=== PATIENT | male | born 1955 | race Caucasian/White ===

== ENCOUNTER 2018-03-28 20:45 | Emergency (ER) | payer MEDICARE, OTHER ==
[2018-03-28 21:04] VITALS: RESP 18
[2018-03-28 21:35] LABS: Basophils % (A) 0 %; Eosinophils # (A) 0.1 k/uL (0-0.7); Eosinophils % (A) 2 %; HCT 37.1 % (39.0-53.0); Lymphocytes # (A) 1.2 k/uL (1.0-4.8); Lymphocytes % (A) 21 %; MCH 29.1 pg (25.0-35.0); MCHC 32.3 g/dL (31.0-37.0); Mean Platelet Volume 7.4; Monocytes # (A) 0.6 k/uL (0-1.0); Monocytes % (A) 12 %; Neutrophils # (A) 3.5 k/uL (1.3-7.7); Neutrophils % (A) 63 %; Platelet Count 207 k/uL (150-450); RBC 4.12 m/uL (4.30-5.90); RDW 15.8 % (11.5-15.5); WBC 5.6 k/uL (3.8-10.6)
[2018-03-28 21:54] LABS: ALT 21 U/L (21-72); AST 20 U/L (17-59); Alcohol <10 mg/dL; Alkaline Phosphatase 60 U/L (38-126); Anion Gap 13 mmol/L; Blood Urea Nitrogen 24 mg/dL (9-20); Calcium 9.4 mg/dL (8.4-10.2); Carbon Dioxide 28 mmol/L (22-30); Chloride 103 mmol/L (98-107); Glucose 104 mg/dL (74-99); Potassium 4.5 mmol/L (3.5-5.1); Sodium 144 mmol/L (137-145); Total Bilirubin 0.4 mg/dL (0.2-1.3)
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
[2018-03-28 23:24] LABS: Appearance,Urine Clear (Clear); Bilirubin,Urine Negative (Negative); Blood,Urine Negative (Negative); Color,Urine Yellow; Glucose,Urine (UA) Negative (Negative); Ketones,Urine Negative (Negative); Leukocyte Esterase,Urine Small (Negative); Mucus,Urine Rare /hpf; Nitrite,Urine Negative (Negative); PH, Urine 5.5 (5.0-8.0); Protein,Urine Trace (Negative); RBC,Urine 5 /hpf (0-5); Specific Gravity,Urine 1.022 (1.001-1.035); Squamous Epithelial Cell,Urine <1 /hpf (0-4); Urobilinogen,Urine <2.0 mg/dL (<2.0); WBC,Urine 4 /hpf (0-5)
[2018-03-28 23:41] LABS: Amphetamine Screen,Urine Not Detected (NotDetected); Barbiturate Screen,Urine Not Detected (NotDetected); Benzodiazepines Screen,Urine Detected (NotDetected); Cocaine Screen,Urine Not Detected (NotDetected); Methadone Screen, Urine Not Detected (NotDetected); Opiate Screen,Urine Not Detected (NotDetected); Oxycodone Screen, Urine Not Detected (NotDetected); Phencyclidine Screen,Urine Not Detected (NotDetected); Tricyclic Antidepressant,Urine Detected (NotDetected); Urn Cannabinoid Scrn Not Detected (NotDetected)
[2018-03-29 01:35] VITALS: BP 170/83; PULSE 75; TEMP 97.8
== END 2018-03-29 01:34 | disposition home or self-care (01) ==
LOC: EC 20:45
DX: F20.9 Schizophrenia, unspecified (principal); F31.9 Bipolar disorder, unspecified; F79 Unspecified intellectual disabilities; Z79.01 Long term (current) use of anticoagulants; Z79.82 Long term (current) use of aspirin; Z79.51 Long term (current) use of inhaled steroids; Z79.899 Other long term (current) drug therapy; Z88.8 Allergy status to other drugs, medicaments and biological substances
CPT/HCPCS: 36415; 51701; 80053; 80306; 80320; 81001; 82075; 85025; 99284

== ENCOUNTER 2018-03-29 14:55 | Emergency (ER) | payer MEDICARE, OTHER ==
[2018-03-29] MEDS ORDERED: LORazepam 2 MG/ML INJ IV STA (15:27)
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
[2018-03-29 15:58] LABS: Basophils % (A) 0 %; Eosinophils # (A) 0.1 k/uL (0-0.7); Eosinophils % (A) 1 %; HCT 38.8 % (39.0-53.0); HGB 12.7 gm/dL (13.0-17.5); Lymphocytes % (A) 15 %; MCH 29.7 pg (25.0-35.0); MCHC 32.6 g/dL (31.0-37.0); MCV 91.1 fL (80.0-100.0); Mean Platelet Volume 6.8; Monocytes # (A) 0.7 k/uL (0-1.0); Monocytes % (A) 10 %; Neutrophils # (A) 4.5 k/uL (1.3-7.7); Neutrophils % (A) 70 %; Platelet Count 201 k/uL (150-450); RBC 4.26 m/uL (4.30-5.90); RDW 15.9 % (11.5-15.5); WBC 6.5 k/uL (3.8-10.6)
[2018-03-29 16:11] LABS: ALT 23 U/L (21-72); AST 22 U/L (17-59); Albumin 4.2 g/dL (3.5-5.0); Alcohol <10 mg/dL; Alkaline Phosphatase 75 U/L (38-126); Anion Gap 16 mmol/L; Blood Urea Nitrogen 23 mg/dL (9-20); Calcium 9.8 mg/dL (8.4-10.2); Carbon Dioxide 28 mmol/L (22-30); Chloride 103 mmol/L (98-107); Glucose 100 mg/dL (74-99); Potassium 5.3 mmol/L (3.5-5.1); Sodium 147 mmol/L (137-145); Total Bilirubin 0.7 mg/dL (0.2-1.3); Total Protein 7.5 g/dL (6.3-8.2)
[2018-03-29 16:14] LABS: INR 1.2 (<1.2); Partial Thromboplastin Time 32.5 sec (22.0-30.0); Prothrombin Time 11.1 sec (9.0-12.0)
[2018-03-29 16:20] LABS: Creatine Kinase 254 U/L (55-170)
[2018-03-29 16:33] LABS: Troponin I <0.012 ng/mL (0.000-0.034)
--- NOTE | 2018-03-29 16:38 | CT ---
EXAMINATION TYPE: CT brain wo con DATE OF EXAM: 03/29/2018 COMPARISON: NONE HISTORY: ALTERED MENTAL STATUS CT DLP: 2386 mGycm Automated exposure control for dose reduction was used. FINDINGS: The exam is limited as the patient is unable to follow commands. The patient would not breast has had in the address and therefore artifact is seen within the left hemisphere. No evidence of acute intra cranial hemorrhage is seen. No midline shift or significant mass effect. Slight ventricular prominenc e and sulcal prominence are most compatible with minimal age-related atrophy. Calvarium is grossly in tact. Paranasal sinuses and mastoid air cells are well aerated. There is partial visualization of upp er cervical spine postsurgical change. No suspicious extra axial fluid collection is seen. IMPRESSION: LIMITED EXAM THE PATIENT COULD NOT FOLLOW INSTRUCTIONS. NO GROSS EVIDENCE OF INTRACRANIAL HEMORRHA GE, MIDLINE SHIFT OR MASS EFFECT.
--- NOTE | 2018-03-29 16:38 | XR ---
EXAMINATION TYPE: XR chest 2V DATE OF EXAM: 03/29/2018 COMPARISON: NONE HISTORY: Confusion. Altered mental status. TECHNIQUE: Frontal and lateral views of the chest are obtained. FINDINGS: There is diffuse osseous demineralization, atypical given the patient's age. There is an e xaggerated thoracic kyphosis and mild multilevel degenerative change of the thoracic spine. No focal consolidation, pleural effusion or pneumothorax. Cardiomediastinal silhouette is upper limits of norm al. Partial visualization of cervical fusion device is seen. IMPRESSION: No acute cardiopulmonary process.
[2018-03-29] MEDS ORDERED: SODIUM CHLORIDE 0.9% 500 ML IV ONE (17:18)
[2018-03-29 17:35] LABS: Appearance,Urine Clear (Clear); Bilirubin,Urine Negative (Negative); Blood,Urine Negative (Negative); Color,Urine Yellow; Glucose,Urine (UA) Negative (Negative); Ketones,Urine Trace (Negative); Leukocyte Esterase,Urine Negative (Negative); Nitrite,Urine Negative (Negative); PH, Urine 6.5 (5.0-8.0); Protein,Urine Negative (Negative); Specific Gravity,Urine 1.018 (1.001-1.035); Urobilinogen,Urine <2.0 mg/dL (<2.0)
[2018-03-29 17:47] LABS: Amphetamine Screen,Urine Not Detected (NotDetected); Barbiturate Screen,Urine Not Detected (NotDetected); Benzodiazepines Screen,Urine Detected (NotDetected); Cocaine Screen,Urine Not Detected (NotDetected); Methadone Screen, Urine Not Detected (NotDetected); Opiate Screen,Urine Not Detected (NotDetected); Oxycodone Screen, Urine Not Detected (NotDetected); Phencyclidine Screen,Urine Not Detected (NotDetected); Tricyclic Antidepressant,Urine Not Detected (NotDetected); Urn Cannabinoid Scrn Not Detected (NotDetected)
[2018-03-29 19:49] VITALS: RESP 19
[2018-03-29 23:13] VITALS: BP 134/80; PULSE 75; TEMP 97
== END 2018-03-29 23:55 | disposition other institution (70) ==
LOC: EC 14:55
DX: F20.9 Schizophrenia, unspecified (principal); F29 Unspecified psychosis not due to a substance or known physiological condition; F31.9 Bipolar disorder, unspecified; K21.9 Gastro-esophageal reflux disease without esophagitis; I10 Essential (primary) hypertension; G40.909 Epilepsy, unspecified, not intractable, without status epilepticus; Z86.711 Personal history of pulmonary embolism; Z79.01 Long term (current) use of anticoagulants; Z79.82 Long term (current) use of aspirin; Z79.51 Long term (current) use of inhaled steroids; Z79.899 Other long term (current) drug therapy; Z88.8 Allergy status to other drugs, medicaments and biological substances
CPT/HCPCS: 82075; 36415; 93005; 80053; 82550; 82553; 84484; 85025; 85610; 85730; 81003; 80306; 80320; 71046; 70450; 99285; 96374; 96361 ×6; J2060

== ENCOUNTER 2018-04-01 14:17 | Emergency (ER) | payer MEDICARE, OTHER ==
--- NOTE | 2018-04-01 15:00 | ED ---
General Adult HPI - General Source: RN notes reviewed <Sheldon Gillis - Last Filed: 04/01/18 16:37> <Saud Tavarez - Last Filed: 04/01/18 23:15> - General Stated complaint: EPS eval Time Seen by Provider: 04/01/18 14:20 - History of Present Illness Initial comments: This is a 62-year-old male who has mental disability and is sent in because he is having more more violent behavior. There is no further history given there is no family with the patient there is no caregiver with the patient and the patient cannot give any further history. He has no complaints of any pain. Patient denies any problems. (Sheldon Gillis) - Related Data Home Medications Medication Instructions Recorded Confirmed Acetaminophen [Tylenol] 650 mg PO Q6HR PRN 03/28/18 04/01/18 Apixaban [Eliquis] 5 mg PO BID 03/28/18 04/01/18 Aspirin EC [Ecotrin Low Dose] 81 mg PO DAILY 03/28/18 04/01/18 Atorvastatin Calcium [Lipitor] 10 mg PO HS 03/28/18 04/01/18 Divalproex Sodium [Divalproex 500 mg PO BID 03/28/18 04/01/18 Sodium ER] Docusate [Colace] 100 mg PO DAILY 03/28/18 04/01/18 Donepezil [Aricept] 10 mg PO DAILY 03/28/18 04/01/18 Fluticasone/Vilanterol [Breo 1 puff INHALATION RT-DAILY 03/28/18 04/01/18 Ellipta 100-25 Mcg Inhaler] Lacosamide [Vimpat] 100 mg PO BID 03/28/18 04/01/18 Memantine [Namenda] 10 mg PO BID 03/28/18 04/01/18 Pantoprazole Sodium [Protonix] 40 mg PO DAILY 03/28/18 04/01/18 QUEtiapine FUMARATE [SEROquel] 300 mg PO HS 03/28/18 04/01/18 Tiotropium [place] [Spiriva] 1 cap INHALATION RT-DAILY 03/28/18 04/01/18 clonazePAM [KlonoPIN] 0.5 mg PO QAM@0900 05/31/18 06/04/18 clonazePAM [KlonoPIN] 1.5 mg PO HS 03/28/18 04/01/18 levETIRAcetam [Keppra] 1,000 mg PO BID 03/28/18 04/01/18 OLANZapine [ZyPREXA Zydis] 5 mg PO Q12H PRN 04/01/18 04/01/18 Allergies Allergy/AdvReac Type Severity Reaction Status Date / Time benztropine Allergy Unknown Verified 04/01/18 15:14 Review of Systems ROS Other: All systems not noted in ROS Statement are negative. <Sheldon Gillis - Last Filed: 04/01/18 16:37> ROS Other: All systems not noted in ROS Statement are negative. <Saud Tavarez - Last Filed: 04/01/18 23:15> ROS Statement: Those systems with pertinent positive or pertinent negative responses have been documented in the HPI. Past Medical History Past Medical History: GERD/Reflux, Hypertension, Pneumonia, Pulmonary Embolus ( PE), Seizure Disorder Additional Past Medical History / Comment(s): respirtory failure, sepsis, thrombocytopenia, bladder disfunction History of Any Multi-Drug Resistant Organisms: Unobtainable Past Surgical History: Unable to Obtain Additional Past Surgical History / Comment(s): unable to obtain from pt Past Psychological History: Bipolar, Schizoaffective Disorder, Schizophrenia Smoking Status: Unknown if ever smoked Past Alcohol Use History: Unable to Obtain Past Drug Use History: Unable to Obtain <Sheldon Gillis - Last Filed: 04/01/18 16:37> General Exam <Sheldon Gillis - Last Filed: 04/01/18 16:37> <Saud Tavarez - Last Filed: 04/01/18 23:15> - General Exam Comments Initial Comments: GENERAL: Patient is well-developed and well-nourished. Patient is nontoxic and well- hydrated and is in no acute distress. ENT: Neck is soft and supple. No significant lymphadenopathy is noted. Oropharynx is clear. Moist mucous membranes. Neck has full range of motion without eliciting any pain. EYES: The sclera were anicteric and conjunctiva were pink and moist. Extraocular movements were intact and pupils were equal round and reactive to light. Eyelids were unremarkable. PULMONARY: Unlabored respirations. Good breath sounds bilaterally. No audible rales rhonchi or wheezing was noted. CARDIOVASCULAR: There is a regular rate and rhythm without any murmurs gallops or rubs. ABDOMEN: Soft and nontender with normal bowel sounds. SKIN: Skin is clear with no lesions or rashes and otherwise unremarkable. NEUROLOGIC: Patient is alert and oriented times one. Cranial nerves II through XII are grossly intact. Motor and sensory are also intact. Symmetrical smile. MUSCULOSKELETAL: Normal extremities with adequate strength and full range of motion. No lower extremity swelling or edema. No calf tenderness. LYMPHATICS: No significant lymphadenopathy is noted (Sheldon Gillis) Vital Signs 04/01/18 04/01/18 04/01/18 15:08 15:24 21:58 Temperature 98.4 F 98.0 F Pulse Rate 97 94 Respiratory 18 20 16 Rate Blood Pressure 131/90 125/77 O2 Sat by Pulse 95 96 Oximetry Medical Decision Making <Sheldon Gillis - Last Filed: 04/01/18 16:37> - Lab Data Result diagrams: 04/01/18 16:42 04/01/18 16:42 <Saud Tavarez - Last Filed: 04/01/18 23:15> - Medical Decision Making Dr. Lakhani will be taking over the care of this patient at 5 PM (Sheldon Gillis) The patient was seen and examined. All diagnostics were reviewed. It is felt as though he is medically cleared for further psychiatric evaluation. The case is discussed with the psychiatric nurse and they do arrange transfer to another psychiatric facility for further geriatric psychiatric treatment. (Saud Tavarez) - Lab Data Lab Results 04/01/18 04/01/18 04/01/18 Range/Units 16:42 16:42 16:42 WBC 9.2 (3.8-10.6) k/uL RBC 3.82 L (4.30-5.90) m/uL Hgb 11.2 L (13.0-17.5) gm/dL Hct 34.8 L (39.0-53.0) % MCV 91.0 (80.0-100.0) fL MCH 29.4 (25.0-35.0) pg MCHC 32.3 (31.0-37.0) g/dL RDW 15.8 H (11.5-15.5) % Plt Count 162 (150-450) k/uL Neutrophils % 75 % Lymphocytes % 14 % Monocytes % 8 % Eosinophils % 2 % Basophils % 0 % Neutrophils # 6.9 (1.3-7.7) k/uL Lymphocytes # 1.3 (1.0-4.8) k/uL Monocytes # 0.8 (0-1.0) k/uL Eosinophils # 0.1 (0-0.7) k/uL Basophils # 0.0 (0-0.2) k/uL Hypochromasia Slight Sodium 141 (137-145) mmol/L Potassium 4.7 (3.5-5.1) mmol/L Chloride 99 (98-107) mmol/L Carbon Dioxide 31 H (22-30) mmol/L Anion Gap 11 mmol/L BUN 12 (9-20) mg/dL Creatinine 0.85 (0.66-1.25) mg/dL Est GFR (CKD-EPI)AfAm >90 (>60 ml/min/1.73 sqM) Est GFR (CKD-EPI)NonAf >90 (>60 ml/min/1.73 sqM) Glucose 107 H (74-99) mg/dL Calcium 9.0 (8.4-10.2) mg/dL Total Bilirubin 0.7 (0.2-1.3) mg/dL AST 22 (17-59) U/L ALT 21 (21-72) U/L Alkaline Phosphatase 63 (38-126) U/L Total Protein 6.9 (6.3-8.2) g/dL Albumin 4.0 (3.5-5.0) g/dL Urine Opiates Screen Not Detected (NotDetected) Ur Oxycodone Screen Not Detected (NotDetected) Urine Methadone Screen Not Detected (NotDetected) Ur Propoxyphene Screen Not Detected (NotDetected) Ur Barbiturates Screen Not Detected (NotDetected) U Tricyclic Antidepress Detected H (NotDetected) Ur Phencyclidine Scrn Not Detected (NotDetected) Ur Amphetamines Screen Not Detected (NotDetected) U Methamphetamines Scrn Not Detected (NotDetected) U Benzodiazepines Scrn Not Detected (NotDetected) Urine Cocaine Screen Not Detected (NotDetected) U Marijuana (THC) Screen Not Detected (NotDetected) Disposition <Sheldon Gillis - Last Filed: 04/01/18 16:37> Is patient prescribed a controlled substance at d/c from ED?: No Time of Disposition: 23:15 - Out of Hospital Transfer - Req. Specs Out of Hospital Transfer - Requested Specifics: Psychiatric Non-ICU <Saud Tavarez - Last Filed: 04/01/18 23:15> Clinical Impression: Aggressive behavior Disposition: TRANSFER TO PSYCH HOSP/UNIT Condition: Good
[2018-04-01 16:49] LABS: Basophils % (A) 0 %; Eosinophils # (A) 0.1 k/uL (0-0.7); Eosinophils % (A) 2 %; HCT 34.8 % (39.0-53.0); HGB 11.2 gm/dL (13.0-17.5); Hypochromasia Slight; Lymphocytes # (A) 1.3 k/uL (1.0-4.8); Lymphocytes % (A) 14 %; MCH 29.4 pg (25.0-35.0); MCHC 32.3 g/dL (31.0-37.0); Mean Platelet Volume 6.5; Monocytes # (A) 0.8 k/uL (0-1.0); Monocytes % (A) 8 %; Neutrophils # (A) 6.9 k/uL (1.3-7.7); Neutrophils % (A) 75 %; Platelet Count 162 k/uL (150-450); RBC 3.82 m/uL (4.30-5.90); RDW 15.8 % (11.5-15.5); WBC 9.2 k/uL (3.8-10.6)
[2018-04-01 16:59] LABS: ALT 21 U/L (21-72); AST 22 U/L (17-59); Alkaline Phosphatase 63 U/L (38-126); Amphetamine Screen,Urine Not Detected (NotDetected); Anion Gap 11 mmol/L; Barbiturate Screen,Urine Not Detected (NotDetected); Benzodiazepines Screen,Urine Not Detected (NotDetected); Blood Urea Nitrogen 12 mg/dL (9-20); Carbon Dioxide 31 mmol/L (22-30); Chloride 99 mmol/L (98-107); Cocaine Screen,Urine Not Detected (NotDetected); Glucose 107 mg/dL (74-99); Methadone Screen, Urine Not Detected (NotDetected); Opiate Screen,Urine Not Detected (NotDetected); Oxycodone Screen, Urine Not Detected (NotDetected); Phencyclidine Screen,Urine Not Detected (NotDetected); Potassium 4.7 mmol/L (3.5-5.1); Sodium 141 mmol/L (137-145); Total Bilirubin 0.7 mg/dL (0.2-1.3); Total Protein 6.9 g/dL (6.3-8.2); Tricyclic Antidepressant,Urine Detected (NotDetected); Urn Cannabinoid Scrn Not Detected (NotDetected)
[2018-04-02 03:15] VITALS: RESP 18
[2018-04-02 05:25] LABS: Appearance,Urine Cloudy (Clear); Bacteria,Urine Rare /hpf; Bilirubin,Urine Negative (Negative); Blood,Urine Moderate (Negative); Color,Urine Yellow; Glucose,Urine (UA) Negative (Negative); Ketones,Urine Negative (Negative); Leukocyte Esterase,Urine Large (Negative); Mucus,Urine Rare /hpf; Nitrite,Urine Negative (Negative); PH, Urine 7.5 (5.0-8.0); Protein,Urine 1+ (Negative); RBC,Urine 88 /hpf (0-5); Specific Gravity,Urine 1.012 (1.001-1.035); Squamous Epithelial Cell,Urine 1 /hpf (0-4); Urobilinogen,Urine <2.0 mg/dL (<2.0); WBC,Urine 180 /hpf (0-5)
[2018-04-02] MEDS ORDERED: LEVOFLOXACIN 750 MG TAB PO STA (05:42)
[2018-04-02] MEDS ORDERED: levETIRAcetam 500 MG TAB PO STA (06:05)
[2018-04-02] MEDS ORDERED: DOCUSATE 100 MG CAP PO ONE (07:00)
[2018-04-02] MEDS ORDERED: MEMANTINE 10 MG TAB PO ONE (07:00)
[2018-04-02] MEDS ORDERED: ASPIRIN 81 MG PO ONE (07:00)
[2018-04-02] MEDS ORDERED: LACOSAMIDE 50 MG TABLET PO ONE (07:00)
[2018-04-02] MEDS ORDERED: PANTOPRAZOLE 40 MG TABLET PO ONE (07:00)
[2018-04-02] MEDS ORDERED: APIXABAN 5 MG TAB PO ONE (07:00)
[2018-04-02] MEDS ORDERED: IPRATROPIUM 0.5 MG/2.5 ML NEBU INHALATION ONE (07:00)
[2018-04-02] MEDS: DIVALPROEX ER 500 MG TAB.ER.24H PO ONE ×2 (07:12→07:14)
[2018-04-02] MEDS ORDERED: OLANZapine 5 MG TAB PO SCH (09:00)
[2018-04-02 14:53] VITALS: BP 145/85; PULSE 82; TEMP 97.1
== END 2018-04-02 14:54 ==
LOC: EC 14:17
DX: F91.8 Other conduct disorders (principal); K21.9 Gastro-esophageal reflux disease without esophagitis; I10 Essential (primary) hypertension; G40.909 Epilepsy, unspecified, not intractable, without status epilepticus; Z86.711 Personal history of pulmonary embolism; F31.9 Bipolar disorder, unspecified; F20.9 Schizophrenia, unspecified; Z79.01 Long term (current) use of anticoagulants; Z79.82 Long term (current) use of aspirin; Z79.899 Other long term (current) drug therapy; Z88.8 Allergy status to other drugs, medicaments and biological substances; Z53.8 Procedure and treatment not carried out for other reasons
CPT/HCPCS: 36415; 80053; 80306; 81001; 82075; 85025; 99285

== ENCOUNTER 2018-04-02 19:09 | Inpatient (IN) | payer MEDICARE, MEDICAID ==
--- NOTE | 2018-04-02 19:43 | ED ---
General Adult HPI - General Chief complaint: Psychiatric Symptoms Stated complaint: Mental Health Time Seen by Provider: 04/02/18 19:19 Source: EMS, RN notes reviewed, old records reviewed Mode of arrival: EMS Limitations: no limitations - History of Present Illness Initial comments: This is a 62-year-old male the ER for evaluation. Patient's brought in his return evaluation for inpatient psychiatric admission treatment. Patient is found to staff, cooperative, patient's poor strain currently. Patient's brought in by EMS as he was refusing transfer facility secondary to inpatient psychiatric treatment. - Related Data Home Medications Medication Instructions Recorded Confirmed Acetaminophen [Tylenol] 650 mg PO Q6HR PRN 03/28/18 04/02/18 Apixaban [Eliquis] 5 mg PO BID 03/28/18 04/02/18 Aspirin EC [Ecotrin Low Dose] 81 mg PO DAILY 03/28/18 04/02/18 Atorvastatin Calcium [Lipitor] 10 mg PO HS 03/28/18 04/02/18 Divalproex Sodium [Divalproex 500 mg PO BID 03/28/18 04/02/18 Sodium ER] Docusate [Colace] 100 mg PO DAILY 03/28/18 04/02/18 Donepezil [Aricept] 10 mg PO DAILY 03/28/18 04/02/18 Fluticasone/Vilanterol [Breo 1 puff INHALATION RT-DAILY 03/28/18 04/02/18 Ellipta 100-25 Mcg Inhaler] Lacosamide [Vimpat] 100 mg PO BID 03/28/18 04/02/18 Memantine [Namenda] 10 mg PO BID 03/28/18 04/02/18 Pantoprazole Sodium [Protonix] 40 mg PO DAILY 03/28/18 04/02/18 QUEtiapine FUMARATE [SEROquel] 300 mg PO HS 03/28/18 04/02/18 Tiotropium [place] [Spiriva] 1 cap INHALATION RT-DAILY 03/28/18 04/02/18 clonazePAM [KlonoPIN] 0.5 mg PO QAM@0900 03/28/18 04/02/18 clonazePAM [KlonoPIN] 1.5 mg PO HS 03/28/18 04/02/18 levETIRAcetam [Keppra] 1,000 mg PO BID 03/28/18 04/02/18 OLANZapine [ZyPREXA Zydis] 5 mg PO Q12H PRN 04/01/18 04/02/18 Allergies Allergy/AdvReac Type Severity Reaction Status Date / Time benztropine Allergy Unknown Verified 04/02/18 19:18 Review of Systems ROS Statement: Those systems with pertinent positive or pertinent negative responses have been documented in the HPI. ROS Other: All systems not noted in ROS Statement are negative. Past Medical History Past Medical History: GERD/Reflux, Hypertension, Pneumonia, Pulmonary Embolus ( PE), Seizure Disorder Additional Past Medical History / Comment(s): respirtory failure, sepsis, thrombocytopenia, bladder disfunction History of Any Multi-Drug Resistant Organisms: Unobtainable Past Surgical History: Unable to Obtain Additional Past Surgical History / Comment(s): unable to obtain from pt Past Psychological History: Bipolar, Schizoaffective Disorder, Schizophrenia Smoking Status: Unknown if ever smoked Past Alcohol Use History: Unable to Obtain Past Drug Use History: Unable to Obtain General Exam Limitations: no limitations General appearance: alert, in no apparent distress Head exam: Present: atraumatic, normocephalic, normal inspection Eye exam: Present: normal appearance, PERRL, EOMI. Absent: scleral icterus, conjunctival injection, periorbital swelling ENT exam: Present: normal exam, mucous membranes moist Neck exam: Present: normal inspection. Absent: tenderness, meningismus, lymphadenopathy Respiratory exam: Present: normal lung sounds bilaterally. Absent: respiratory distress, wheezes, rales, rhonchi, stridor Cardiovascular Exam: Present: regular rate, normal rhythm, normal heart sounds. Absent: systolic murmur, diastolic murmur, rubs, gallop, clicks GI/Abdominal exam: Present: soft, normal bowel sounds. Absent: distended, tenderness, guarding, rebound, rigid Extremities exam: Present: normal inspection, full ROM, normal capillary refill. Absent: tenderness, pedal edema, joint swelling, calf tenderness Back exam: Present: normal inspection Neurological exam: Present: alert, oriented X3, CN II-XII intact Psychiatric exam: Present: normal affect, normal mood Skin exam: Present: warm, dry, intact, normal color. Absent: rash Course Vital Signs 04/02/18 19:12 Temperature 98.5 F Pulse Rate 87 Respiratory 16 Rate Blood Pressure 170/88 O2 Sat by Pulse 93 L Oximetry - Reevaluation(s) Reevaluation #1: 04/02/18 19:43 Prior ER hospitalization and transfer paperwork are reviewed Medical Decision Making - Medical Decision Making 62 male seen evaluated with psychiatry, inappropriate for admission for psychiatric evaluation and treatment Disposition Clinical Impression: Schizophrenia, Aggressive behavior, Psychosis Disposition: TRANSFER TO PSYCH HOSP/UNIT Condition: Fair Is patient prescribed a controlled substance at d/c from ED?: No Referrals: Nonstaff,Physician [Primary Care Provider] - 1-2 days
[2018-04-02] MEDS ORDERED: MAGNESIUM HYDROXIDE 2,400 MG/10 ML CUP PO PRN (20:42)
[2018-04-02] MEDS ORDERED: MAG HYDROX/AL HYDROX/SIMETH 30 ML CUP PO PRN (20:42)
[2018-04-02] MEDS: MEMANTINE 10 MG TAB PO SCH (21:54)
[2018-04-02] MEDS: LACOSAMIDE 50 MG TABLET PO SCH (22:00)
[2018-04-02] MEDS: QUEtiapine 100 MG TAB PO SCH (22:00)
[2018-04-02] MEDS: clonazePAM 0.5 MG TAB PO SCH (22:00)
[2018-04-02] MEDS: DIVALPROEX ER 500 MG TAB.ER.24H PO SCH (22:00)
[2018-04-02] MEDS: levETIRAcetam 500 MG TAB PO SCH (22:00)
[2018-04-02] MEDS: ATORVASTATIN 10 MG TAB PO SCH (22:01)
[2018-04-02] MEDS: APIXABAN 5 MG TAB PO SCH (22:04)
--- NOTE | 2018-04-02 22:51 | CONS ---
CONSULTATION DATE OF CONSULTATION: 04/02/2018 REASON FOR CONSULTATION: Medical management requested by Dr. Olson. CONSULTATION: This is a 62-year-old patient who was brought here from the [facility] for some erratic behavior. Patient himself does not talk much. Speech is oftentimes slow, but he currently got a sleeping pill and is not giving much information. Patient has a sitter in the room. Patient apparently walks with a limp with the right foot being affected. Patient was petitioned. Patient's chronic stable medical conditions listed include GERD, hypertension, seizure disorder, thyroid dysfunction. REVIEW OF SYSTEMS: Cannot be obtained, as patient is not currently talking much. PAST MEDICAL HISTORY: 1. GERD. 2. Hypertension. 3. Pneumonia. 4. PE. 5. Seizure disorder. 6. Sepsis. 7. Bladder dysfunction. PAST SURGICAL HISTORY: Orthopedic surgery with a scar on the back of the neck. PSYCH HISTORY: 1. Schizoaffective disorder. 2. Schizophrenia. 3. Bipolar. 4. Cognitive impairment. HOME MEDICATIONS: 1. Keppra 1000 mg p.o. b.i.d. 2. Klonopin 0.5 mg in the morning, 1.5 mg at night. 3. Spiriva 1 capsule p.o. daily. 4. Seroquel 300 mg at bedtime. 5. Protonix 40 mg p.o. daily. 6. Zyprexa 5 mg p.o. q.12 p.r.n. 7. Namenda 10 mg p.o. b.i.d. 8. Vimpat 100 mg p.o. b.i.d. 9. Breo Ellipta 1 puff daily. 10.Aricept 10 mg p.o. daily. 11.Depakote 500 mg p.o. q.i.d. 12.Lipitor 10 mg at bedtime. 13.Aspirin 81 mg p.o. daily. 14.Eliquis 5 mg p.o. b.i.d. ALLERGIES: BENZTROPINE. PHYSICAL EXAMINATION: Temperature 98.4, pulse 89, respiration 18, blood pressure 141/83, pulse ox 94% on room air. GENERAL APPEARANCE: Lying in bed, resting though arousable. EYES: Pupils equal. Conjunctivae normal. HEENT: External appearance of nose and ears normal. Oral cavity unable to assess. NECK: JVD unable to assess. Mass not palpable. RESPIRATORY: Effort normal. LUNGS: Diminished breath sounds. CARDIOVASCULAR: First and second sounds normal. No edema. ABDOMEN: Soft, nontender. Liver and spleen not palpable. LYMPHATIC: No lymph node palpable in neck or axillae. PSYCHIATRY: Unable to assess. NEUROLOGICAL: Pupils equal. No facial asymmetry. Patient does move all 4 limbs. INVESTIGATIONS: No blood work. ASSESSMENT: 1. Gastroesophageal reflux disease. 2. Essential hypertension. 3. Chronic obstructive pulmonary disease. 4. Seizure disorder. 5. Cognitive impairment. 6. Possible dementia. PLAN: Home medications are resumed. We will try to obtain more history tomorrow. In the meantime, continue current medication and treatment plan. Patient has a sitter at the bedside. Thank you, Dr. Olson. LEXI / KEVYN: [id number] /
[2018-04-03] MEDS: MEMANTINE 10 MG TAB PO SCH ×2 (09:29→21:32)
[2018-04-03] MEDS: ASPIRIN 81 MG PO SCH (09:29)
[2018-04-03] MEDS: clonazePAM 0.5 MG TAB PO SCH ×2 (09:29→21:33)
[2018-04-03] MEDS: APIXABAN 5 MG TAB PO SCH ×2 (09:29→21:32)
[2018-04-03] MEDS: PANTOPRAZOLE 40 MG TABLET PO SCH (09:29)
[2018-04-03] MEDS: DOCUSATE 100 MG CAP PO SCH (09:30)
[2018-04-03] MEDS: levETIRAcetam 500 MG TAB PO SCH ×3 (09:30→21:40)
[2018-04-03] MEDS: DIVALPROEX ER 500 MG TAB.ER.24H PO SCH ×3 (09:30→21:39)
[2018-04-03] MEDS: DONEPEZIL 10 MG TAB PO SCH (09:30)
[2018-04-03] MEDS: LACOSAMIDE 50 MG TABLET PO SCH ×2 (09:30→21:32)
[2018-04-03] MEDS: SYMBICORT 80-4.5 MCG INHALER INHALATION SCH ×2 (11:17→21:16)
[2018-04-03] MEDS: TIOTROPIUM 18 MCG/PUFF INHALER INHALATION SCH (11:17)
--- NOTE | 2018-04-03 11:30 | P.HP ---
Psychiatric H&P - . History & Physical: Allergies Allergy/AdvReac Type Severity Reaction Status Date / Time benztropine Allergy Unknown Verified 04/02/18 21:26 Vital Signs Temp 98.4 F 04/02/18 21:28 Pulse 89 04/02/18 21:28 Resp 18 04/02/18 21:28 BP 141/83 04/02/18 21:28 Pulse Ox 94 L 04/02/18 21:28 Intake & Output 04/02/18 04/03/18 04/03/18 18:59 06:59 18:59 Weight 68.691 kg 04/03/18 11:17 IDENTIFYING DATA: This patient is a 62-year-old male who was admitted to the mental health unit through the emergency room. HPI: The patient's presented to the emergency room from an extended care facility in [place]. [facility]. He was sent to us for combative behavior and being verbally abusive. The report indicated that this behavior had been worsening over the last week. It appears the patient was evaluated twice in the emergency room recently for similar complaints and was sent back to medical [place]. Head CT was performed which was negative for any acute process. He did undergo laboratory studies with each visit. Essentially they appeared normal other than his last UA appearing abnormal. A urine culture has been ordered. The patient's was not cooperative with an interview this morning. He provided one word answers to 3- 4 questions. He does appear lethargic. I'm informed that he has a guardian in [facility]. He was scheduled to be transferred to [facility] for geriatric psychiatric care but he was refused prior to admission there as they discovered a diagnosis of intellectual disability. Nursing states they were able to get a hold of Dr. Collins a primary care physician it appears who knows the patient well. He had indicated that the patient has had several hospitalizations and his symptoms were often refractory in terms of behavior. So far unit staff have described the patient as being irritable. They state that he has been able to ambulate on his own and use the restroom. He has not been drinking any fluids and has not eaten breakfast. PAST PSYCHIATRIC HISTORY: Clear history unknown. Suspect prior psychiatric hospitalizations. Unknown if any suicide attempt history. He is prescribed Aricept 10 mg, Namenda 10 mg twice daily, Seroquel 300 mg at bedtime, Klonopin 0.5 mg in the morning 1.5 mg in the evening, Depakote 500 mg twice daily which may be for seizure control. He is also on Keppra and Vimpat. PMH: Seizure disorder, hypertension, reflux, documented history of PE ALLERGIES: Benztropine MEDICATIONS: As above CHEMICAL DEPENDENCY HISTORY: Unknown FAMILY PSYCHIATRIC HISTORY: Unknown FAMILY CHEMICAL DEPENDENCY HISTORY: Unknown SOCIAL HISTORY: The patient's has been residing at [facility] in [place] for approximately 6 weeks. I believe he was in [facility] prior to that. No other social history is available other than the patient has a guardian in [facility]. MENTAL STATUS EXAM: The patient is a lethargic male appearing his stated age. He is bald. He is dressed in hospital attire and covered with blankets. He arouses to verbal stimuli and then quickly closes his eyes. When more supportive efforts are made to get him to engage in the interview he is very dismissive and provides 3-4 brief one word answers. He appears to have a chronic impediment of speech. He answers no questions pertaining to thoughts of harming himself or others or pertaining to psychosis. He was not answering any questions related to assessing his cognitive status. He is lying in bed comfortably respirations appear to be normal. He demonstrated no physical aggressiveness during our brief interaction. STRENGTHS/WEAKNESSES: Strengths: Patient has a guardian and he did take medication this morning weaknesses possible psychosis and agitated behavior INTELLECTUAL FUNCTIONING: History of intellectual disability IMPRESSIONS: [] 1. Intellectual disability, rule out psychosis, rule out delirium rule out neurocognitive disorder 2. Abnormal UA results rule out UTI, history of seizure disorder hypertension GERD, history of PE PLAN: The patient has been admitted to the mental health unit involuntarily. He requires further evaluation and I did complete a second clinical certificate. We will continue his Aricept Namenda Klonopin Seroquel Depakote Vimpat and Keppra as noted above. Depakote and Keppra levels are ordered as well as B12 folate and TSH. He has been seen by internal medicine we will contact them regarding possible ongoing treatment for suspected UTI. We will attempt to get further information from his guardian's office. He is currently on one-to-one supervision. We will need to track his by mouth intake.
[2018-04-03] MEDS: LEVOFLOXACIN 500 MG TAB PO SCH (16:11)
--- NOTE | 2018-04-03 18:01 | PN ---
PROGRESS NOTE DATE OF SERVICE: 04/03/2018 PRESENTING COMPLAINT: Tired. INTERVAL HISTORY: This is a patient admitted from the [facility] for erratic behavior. The patient has a sitter. The patient did eat a bit. The patient is bent upon getting a pill, so did not even have a bowel movement. Does not give too much of a history. Urine has come back infected-appearing. REVIEW OF SYSTEMS: Difficult to obtain, as patient is reluctant to talk much. CURRENT MEDICATIONS: Reviewed. EXAMINATION: Temperature 98.4, pulse 89, respirations 18, blood pressure 140/83, pulse ox 94% on room air. GENERAL APPEARANCE: Lying in bed. Tries to close his eyes sometimes, even though not sleepy. HEENT: External appearance of nose and ears normal. Oral cavity: Missing dentition. NECK: JVD unable to assess. Mass not palpable. RESPIRATORY: Effort normal. LUNGS: Diminished breath sounds. CARDIOVASCULAR: First and second sounds normal. No edema. ABDOMEN: Soft, nontender. Liver and spleen not palpable. PSYCHIATRY: Patient does answer some questions and does not talk much at times. The patient's UA from the ER is positive. ASSESSMENT: 1. Acute urinary tract infection. 2. Gastroesophageal reflux disease. 3. Essential hypertension. 4. Chronic obstructive pulmonary disease. 5. Seizure disorder. 6. Mild cognitive impairment, possibly from underlying dementia. PLAN: Will add Levaquin. Other medication and treatment plan is to continue. Care was discussed with the nurse. MMROSIL / YUDELKAN: [id number] /
[2018-04-03] MEDS: QUEtiapine 100 MG TAB PO SCH (21:32)
[2018-04-03] MEDS: ATORVASTATIN 10 MG TAB PO SCH (21:33)
[2018-04-04] MEDS: OLANZapine ODT 5 MG TAB PO PRN (02:38)
[2018-04-04] MEDS: SYMBICORT 80-4.5 MCG INHALER INHALATION SCH ×2 (08:07→20:22)
[2018-04-04] MEDS: TIOTROPIUM 18 MCG/PUFF INHALER INHALATION SCH (08:07)
--- NOTE | 2018-04-04 10:29 | P.PN ---
Progress Note - Text Interval history: The patient is found in his room he is awake he briefly makes eye contact and then closes his eyes. He refuses to answer any questions that I ask. I did speak with to staff this morning who describes that the patient was ambulating adequately and required no assistance. Staff also informed me that he ate a small portion of his breakfast and flushed the rest of it down the toilet. He has been consuming some beverages. Verbally he has been irritable I am told but he is demonstrated no physical aggressiveness. Internal medicine has seen the patient again and Levaquin was started for a presumed UTI. Mental status exam: The patient's is awake he is lying in bed with his hands behind his head and he is holding his head upward. He makes brief eye contact and then closes his eyes. He is in no acute distress respirations appear to be normal. He demonstrates no aggressiveness during the time I spent with him. Staff report no physical aggressiveness. Insight and judgment are impaired. He demonstrates no abnormal involuntary movements. Plan: We will continue the patient's current medication. He will continue to be treated for the UTI. We will monitor her compliance with medications and his by mouth intake. He refuses blood work this morning for the Depakote and Keppra level we will reattempt at another time.
[2018-04-04] MEDS: PANTOPRAZOLE 40 MG TABLET PO SCH ×2 (10:34→11:22)
[2018-04-04] MEDS: clonazePAM 0.5 MG TAB PO SCH ×3 (10:35→21:20)
[2018-04-04] MEDS: DOCUSATE 100 MG CAP PO SCH ×2 (10:35→11:22)
[2018-04-04] MEDS: DIVALPROEX ER 500 MG TAB.ER.24H PO SCH ×2 (10:35→11:22)
[2018-04-04] MEDS: ASPIRIN 81 MG PO SCH ×2 (10:35→11:22)
[2018-04-04] MEDS: APIXABAN 5 MG TAB PO SCH ×4 (10:35→21:20)
[2018-04-04] MEDS: MEMANTINE 10 MG TAB PO SCH ×3 (10:36→21:19)
[2018-04-04] MEDS: LACOSAMIDE 50 MG TABLET PO SCH ×2 (10:36→21:19)
[2018-04-04] MEDS: DONEPEZIL 10 MG TAB PO SCH ×2 (10:36→11:22)
[2018-04-04] MEDS: levETIRAcetam 500 MG TAB PO SCH ×2 (10:36→21:19)
[2018-04-04] MEDS: VALPROIC ACID ORAL SOLN 250 MG/5 ML CUP PO SCH (13:19)
[2018-04-04] MEDS: LEVOFLOXACIN 500 MG TAB PO SCH (16:00)
[2018-04-04] MEDS: QUEtiapine 100 MG TAB PO SCH (21:19)
[2018-04-04] MEDS: ATORVASTATIN 10 MG TAB PO SCH (21:19)
[2018-04-05] MEDS: DONEPEZIL 10 MG TAB PO SCH (08:49)
[2018-04-05] MEDS: VALPROIC ACID ORAL SOLN 250 MG/5 ML CUP PO SCH (08:49)
[2018-04-05] MEDS: levETIRAcetam 500 MG TAB PO SCH ×2 (08:49→21:06)
[2018-04-05] MEDS: MEMANTINE 10 MG TAB PO SCH ×2 (08:50→21:07)
[2018-04-05] MEDS: APIXABAN 5 MG TAB PO SCH ×2 (08:50→21:27)
[2018-04-05] MEDS: DOCUSATE 100 MG CAP PO SCH (08:50)
[2018-04-05] MEDS: LACOSAMIDE 50 MG TABLET PO SCH ×2 (08:50→21:07)
[2018-04-05] MEDS: ASPIRIN 81 MG PO SCH (08:50)
[2018-04-05] MEDS: PANTOPRAZOLE 40 MG TABLET PO SCH (08:50)
[2018-04-05] MEDS: clonazePAM 0.5 MG TAB PO SCH ×2 (08:53→21:05)
[2018-04-05] MEDS: SYMBICORT 80-4.5 MCG INHALER INHALATION SCH ×2 (09:01→16:58)
[2018-04-05] MEDS: TIOTROPIUM 18 MCG/PUFF INHALER INHALATION SCH (09:02)
--- NOTE | 2018-04-05 09:59 | P.PN ---
Progress Note - Text Interval history: The patient is found in the hallway again he refuses to speak with me. He states I'm not his doctor and him fired. Staff report that the patient has not been demonstrating any physical aggressiveness. At times he can be verbally agitated although this has been brief. It appears he is intermittently taking his medication. Staff reported that he slept 6 hours last evening. I have been able to observe him ambulating in the hallway and he is doing quite well without any ataxia. Mental status exam: The patient is alert he is dressed in his own clothing he is able to ambulate adequately. With me he demonstrates an irritable affect and is dismissive. He indicates I'm not his doctor and that he has fired me. He will answer no questions. Insight and judgment are impaired. He is demonstrating no abnormal involuntary movements. Plan: We will continue the patient's current medications. Nursing staff are making an effort to get the patient to comply with medication. He remains on Levaquin for a presumed UTI. I will continue to make efforts to engage in a conversation with the patient if he will allow. We will monitor him for safety. We will keep record of his by mouth intake. Vital signs reviewed.
[2018-04-05] MEDS: LEVOFLOXACIN 500 MG TAB PO SCH (14:35)
[2018-04-05] MEDS: ACETAMINOPHEN TAB 325 MG TAB PO PRN (16:40)
[2018-04-05] MEDS: QUEtiapine 100 MG TAB PO SCH (21:05)
[2018-04-05] MEDS: ATORVASTATIN 10 MG TAB PO SCH (21:06)
[2018-04-06] MEDS: BENZOCAINE/MENTHOL LOZENG 1 EACH LOZENGE MUCOUS MEM PRN ×2 (05:26→13:49)
[2018-04-06] MEDS: TIOTROPIUM 18 MCG/PUFF INHALER INHALATION SCH (08:38)
[2018-04-06] MEDS: SYMBICORT 80-4.5 MCG INHALER INHALATION SCH ×2 (08:38→20:33)
[2018-04-06] MEDS: DONEPEZIL 10 MG TAB PO SCH (08:41)
[2018-04-06] MEDS: PANTOPRAZOLE 40 MG TABLET PO SCH (08:41)
[2018-04-06] MEDS: MEMANTINE 10 MG TAB PO SCH ×2 (08:41→20:48)
[2018-04-06] MEDS: LACOSAMIDE 50 MG TABLET PO SCH ×2 (08:41→20:47)
[2018-04-06] MEDS: VALPROIC ACID ORAL SOLN 250 MG/5 ML CUP PO SCH (08:41)
[2018-04-06] MEDS: levETIRAcetam 500 MG TAB PO SCH ×2 (08:41→20:48)
[2018-04-06] MEDS: ASPIRIN 81 MG PO SCH (08:41)
[2018-04-06] MEDS: DOCUSATE 100 MG CAP PO SCH (08:42)
[2018-04-06] MEDS: APIXABAN 5 MG TAB PO SCH ×2 (08:42→20:47)
[2018-04-06] MEDS: clonazePAM 0.5 MG TAB PO SCH ×2 (08:42→20:48)
[2018-04-06] MEDS: LEVOFLOXACIN 500 MG TAB PO SCH (15:05)
--- NOTE | 2018-04-06 17:15 | P.PN ---
Progress Note - Text Progress Note Date: 04/06/18 Interval history: Patient is seen in cross coverage today. 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 He does seem to relay that he is taking at least some of his medications. He makes reference to wanting a white cream for a rash in his inguinal area. He describes his mood is doing okay. Mental status exam: He is alert and cooperative with the interview. His speech is difficult to understand at times. His mood he describes as okay. He does not verbalize any thoughts of harm to self or others. He does not show any significant agitation. Plan: We'll maintain current psychotropic medication regimen. Monitor for medication compliance. Monitor for any medication side effects. We'll continue to cover this patient for the weekend.
[2018-04-06] MEDS: ATORVASTATIN 10 MG TAB PO SCH (20:48)
[2018-04-06] MEDS: QUEtiapine 100 MG TAB PO SCH (21:36)
[2018-04-07] MEDS: OLANZapine ODT 5 MG TAB PO PRN ×2 (03:45→15:02)
[2018-04-07] MEDS: BENZOCAINE/MENTHOL LOZENG 1 EACH LOZENGE MUCOUS MEM PRN (03:46)
[2018-04-07] MEDS: ACETAMINOPHEN TAB 325 MG TAB PO PRN (06:33)
[2018-04-07] MEDS: VALPROIC ACID ORAL SOLN 250 MG/5 ML CUP PO SCH (08:42)
[2018-04-07] MEDS: MEMANTINE 10 MG TAB PO SCH ×2 (08:43→21:33)
[2018-04-07] MEDS: ASPIRIN 81 MG PO SCH (08:44)
[2018-04-07] MEDS: DONEPEZIL 10 MG TAB PO SCH (08:44)
[2018-04-07] MEDS: DOCUSATE 100 MG CAP PO SCH (08:44)
[2018-04-07] MEDS: PANTOPRAZOLE 40 MG TABLET PO SCH (08:44)
[2018-04-07] MEDS: APIXABAN 5 MG TAB PO SCH ×2 (08:44→21:31)
[2018-04-07] MEDS: levETIRAcetam 500 MG TAB PO SCH ×2 (08:45→21:39)
[2018-04-07] MEDS: LACOSAMIDE 50 MG TABLET PO SCH ×2 (08:45→21:39)
[2018-04-07] MEDS: clonazePAM 0.5 MG TAB PO SCH ×2 (08:45→21:35)
[2018-04-07] MEDS: SYMBICORT 80-4.5 MCG INHALER INHALATION SCH ×2 (08:46→20:58)
[2018-04-07] MEDS: TIOTROPIUM 18 MCG/PUFF INHALER INHALATION SCH (08:46)
[2018-04-07] MEDS: LEVOFLOXACIN 500 MG TAB PO SCH (15:03)
--- NOTE | 2018-04-07 17:02 | P.PN ---
Progress Note - Text Progress Note Date: 04/07/18 Interval history: Staff went to patient's room at my request at time of interview and staff reported that patient did not wish to speak with me today. I went to the patient's room, he deferred meeting with me and said that he would see me in court. Mental status exam: Patient is not agreeable with the interview process today. He related that he would see me in court. Plan: We'll maintain current psychotropic medication regimen and monitor his ongoing status, monitor for any medication side effects.
[2018-04-07] MEDS: QUEtiapine 100 MG TAB PO SCH (21:35)
[2018-04-07] MEDS: ATORVASTATIN 10 MG TAB PO SCH (21:36)
[2018-04-08] MEDS: TIOTROPIUM 18 MCG/PUFF INHALER INHALATION SCH (09:40)
[2018-04-08] MEDS: SYMBICORT 80-4.5 MCG INHALER INHALATION SCH ×2 (09:40→20:03)
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
[2018-04-08] MEDS: PANTOPRAZOLE 40 MG TABLET PO SCH (10:08)
[2018-04-08] MEDS: APIXABAN 5 MG TAB PO SCH ×2 (10:08→20:04)
[2018-04-08] MEDS: DOCUSATE 100 MG CAP PO SCH (10:09)
[2018-04-08] MEDS: clonazePAM 0.5 MG TAB PO SCH ×2 (10:09→20:05)
[2018-04-08] MEDS: LACOSAMIDE 50 MG TABLET PO SCH ×2 (10:09→20:04)
[2018-04-08] MEDS: DONEPEZIL 10 MG TAB PO SCH (10:09)
[2018-04-08] MEDS: ASPIRIN 81 MG PO SCH (10:09)
[2018-04-08] MEDS: levETIRAcetam 500 MG TAB PO SCH ×2 (10:10→20:04)
[2018-04-08] MEDS: MEMANTINE 10 MG TAB PO SCH ×2 (10:10→20:04)
[2018-04-08] MEDS: VALPROIC ACID ORAL SOLN 250 MG/5 ML CUP PO SCH (10:10)
[2018-04-08] MEDS: LEVOFLOXACIN 500 MG TAB PO SCH (14:59)
[2018-04-08] MEDS: QUEtiapine 100 MG TAB PO SCH (20:04)
[2018-04-08] MEDS: ATORVASTATIN 10 MG TAB PO SCH (20:04)
[2018-04-09] MEDS: ACETAMINOPHEN TAB 325 MG TAB PO PRN ×2 (02:17→09:52)
[2018-04-09] MEDS: BENZOCAINE/MENTHOL LOZENG 1 EACH LOZENGE MUCOUS MEM PRN (02:20)
[2018-04-09] MEDS: SYMBICORT 80-4.5 MCG INHALER INHALATION SCH ×3 (08:29→20:15)
[2018-04-09] MEDS: TIOTROPIUM 18 MCG/PUFF INHALER INHALATION SCH (08:29)
[2018-04-09] MEDS: PANTOPRAZOLE 40 MG TABLET PO SCH (09:50)
[2018-04-09] MEDS: DOCUSATE 100 MG CAP PO SCH (09:50)
[2018-04-09] MEDS: VALPROIC ACID ORAL SOLN 250 MG/5 ML CUP PO SCH (09:50)
[2018-04-09] MEDS: levETIRAcetam 500 MG TAB PO SCH ×2 (09:50→21:47)
[2018-04-09] MEDS: LACOSAMIDE 50 MG TABLET PO SCH ×2 (09:50→22:10)
[2018-04-09] MEDS: ASPIRIN 81 MG PO SCH (09:50)
[2018-04-09] MEDS: clonazePAM 0.5 MG TAB PO SCH ×2 (09:50→21:50)
[2018-04-09] MEDS: APIXABAN 5 MG TAB PO SCH ×2 (09:50→21:46)
[2018-04-09] MEDS: MEMANTINE 10 MG TAB PO SCH ×2 (09:50→21:46)
[2018-04-09] MEDS: DONEPEZIL 10 MG TAB PO SCH (09:51)
--- NOTE | 2018-04-09 10:13 | P.PN ---
Progress Note - Text Interval history: The patient is found in his room he is lying in bed he is holding his head up and keeps his eyes closed. Clearly the patient is awake as he maintains the same posture throughout our interaction. He provided no verbal response to any question asked. He was observed early this morning ambulating in the hallway without ataxia. He was at the front counter clerk ventilating feelings of frustration. There have been no reports of any physical aggressiveness. The patient did allow blood work to be drawn we are awaiting those results. It appears she's been compliant with his medications. He does have a court hearing scheduled for tomorrow. Mental status exam: The patient is a male appearing his stated age. He is dressed in his own clothing. During our interaction is lying in bed holding his head up in a flexed position. He makes no eye contact during that time and provides no verbal response. He was lying in bed with no demonstrated abnormal involuntary movements. He demonstrated no aggressiveness. Insight and judgment remain limited. As noted he is observed ambulating in the hallway without ataxia. He does have a chronic impediment of speech and a chronic history of intellectual disability. Plan: The patient will continue on his current psychotropic medications we are ensuring he is compliant with those he continues to receive antibiotic therapy for UTI. We will await the levels of Depakote and Keppra and make any adjustments as needed. It appears he will return to [facility] in [place] once stabilized.
[2018-04-09] MEDS: LEVOFLOXACIN 500 MG TAB PO SCH (16:19)
[2018-04-09] MEDS: ATORVASTATIN 10 MG TAB PO SCH (21:46)
[2018-04-09] MEDS: QUEtiapine 100 MG TAB PO SCH (21:50)
[2018-04-10] MEDS: TIOTROPIUM 18 MCG/PUFF INHALER INHALATION SCH (08:54)
[2018-04-10] MEDS: SYMBICORT 80-4.5 MCG INHALER INHALATION SCH ×2 (08:54→21:10)
--- NOTE | 2018-04-10 08:56 | P.PN ---
Progress Note - Text Interval history: The patient is found in his room he is standing at a table and eating breakfast. Upon introducing myself and entering the room he yells "get out" he is not agreeable to speaking with me at a later time. Nursing states that the patient will speak to some staff. He can still be verbally agitated but has demonstrated no physical aggressiveness. Lab work results are available the Keppra is in a therapeutic range the Depakote level is quite low. Mental status exam: The patient is alert he is standing without difficulty at a table eating his breakfast. He makes brief eye contact. He is verbally agitated with me. He refuses to answer any questions. He demonstrates no abnormal involuntary movements. He demonstrated no physical aggressiveness. He has a chronic history of intellectual disability and speech impediment. Insight and judgment are impaired. Plan: The patient will continue on his current medications I will titrate the Depakene syrup to 1000 mg daily. We will monitor him for safety. He may be appropriate for discharge in the next 1-2 days depending on his clinical presentation. We will monitor him for safety.
[2018-04-10] MEDS: LACOSAMIDE 50 MG TABLET PO SCH ×2 (09:03→20:24)
[2018-04-10] MEDS: DONEPEZIL 10 MG TAB PO SCH (09:04)
[2018-04-10] MEDS: clonazePAM 0.5 MG TAB PO SCH ×2 (09:04→20:24)
[2018-04-10] MEDS: PANTOPRAZOLE 40 MG TABLET PO SCH (09:04)
[2018-04-10] MEDS: levETIRAcetam 500 MG TAB PO SCH ×2 (09:04→20:24)
[2018-04-10] MEDS: ASPIRIN 81 MG PO SCH (09:04)
[2018-04-10] MEDS: APIXABAN 5 MG TAB PO SCH ×2 (09:04→20:25)
[2018-04-10] MEDS: VALPROIC ACID ORAL SOLN 250 MG/5 ML CUP PO SCH (09:04)
[2018-04-10] MEDS: MEMANTINE 10 MG TAB PO SCH ×2 (09:04→20:25)
[2018-04-10] MEDS: DOCUSATE 100 MG CAP PO SCH (09:04)
[2018-04-10] MEDS: OLANZapine ODT 5 MG TAB PO PRN (16:01)
[2018-04-10] MEDS: ATORVASTATIN 10 MG TAB PO SCH (20:24)
[2018-04-10] MEDS: QUEtiapine 100 MG TAB PO SCH (20:24)
[2018-04-11] MEDS: SYMBICORT 80-4.5 MCG INHALER INHALATION SCH ×2 (09:17→22:05)
[2018-04-11] MEDS: TIOTROPIUM 18 MCG/PUFF INHALER INHALATION SCH (09:17)
--- NOTE | 2018-04-11 09:37 | P.PN ---
Progress Note - Text Interval history: The patient is found in his room. He is lying in bed. Again he's providing no responses verbally during our interaction. He is lying in bed with his eyes closed. It does not appear he is sleeping. He is in no acute distress respirations appear normal. Staff reported the patient has been demonstrating some wandering behavior no physical aggressiveness. He is noted to be verbal during the night and his room talking to himself. It appears he has been compliant with his medications. Mental status exam: The patient's is lying in bed he provides no eye contact he provides no verbal responses to questions asked. He is in no acute distress. He is demonstrating no agitated behavior at this time. No reports of physical aggressiveness. Insight and judgment chronically limited due to intellectual disability. He is demonstrating no abnormal involuntary movements. Plan: The patient's will continue on his current medication we have recently titrated the Depakote. The patient is likely approaching his baseline function. We will discuss his progress again during team meeting this morning in terms of discharge planning. Vital signs reviewed.
[2018-04-11] MEDS: clonazePAM 0.5 MG TAB PO SCH ×2 (11:48→20:34)
[2018-04-11] MEDS: VALPROIC ACID ORAL SOLN 250 MG/5 ML CUP PO SCH (11:48)
[2018-04-11] MEDS: levETIRAcetam 500 MG TAB PO SCH ×2 (11:48→20:34)
[2018-04-11] MEDS: DOCUSATE 100 MG CAP PO SCH (11:49)
[2018-04-11] MEDS: LACOSAMIDE 50 MG TABLET PO SCH ×2 (11:49→20:33)
[2018-04-11] MEDS: APIXABAN 5 MG TAB PO SCH ×2 (11:49→20:34)
[2018-04-11] MEDS: DONEPEZIL 10 MG TAB PO SCH (11:49)
[2018-04-11] MEDS: PANTOPRAZOLE 40 MG TABLET PO SCH (11:49)
[2018-04-11] MEDS: ASPIRIN 81 MG PO SCH (11:49)
[2018-04-11] MEDS: MEMANTINE 10 MG TAB PO SCH ×2 (11:49→20:34)
[2018-04-11] MEDS: QUEtiapine 100 MG TAB PO SCH (20:34)
[2018-04-11] MEDS: ATORVASTATIN 10 MG TAB PO SCH (20:34)
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
[2018-04-12] MEDS: SYMBICORT 80-4.5 MCG INHALER INHALATION SCH (09:22)
[2018-04-12] MEDS: TIOTROPIUM 18 MCG/PUFF INHALER INHALATION SCH (09:23)
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
[2018-04-12] MEDS: clonazePAM 0.5 MG TAB PO SCH ×2 (11:34→21:01)
[2018-04-12] MEDS: VALPROIC ACID ORAL SOLN 250 MG/5 ML CUP PO SCH (11:34)
[2018-04-12] MEDS: DONEPEZIL 10 MG TAB PO SCH (11:34)
[2018-04-12] MEDS: ASPIRIN 81 MG PO SCH (11:34)
[2018-04-12] MEDS: DOCUSATE 100 MG CAP PO SCH (11:34)
[2018-04-12] MEDS: MEMANTINE 10 MG TAB PO SCH ×2 (11:34→21:00)
[2018-04-12] MEDS: APIXABAN 5 MG TAB PO SCH ×2 (11:34→21:00)
[2018-04-12] MEDS: levETIRAcetam 500 MG TAB PO SCH ×2 (11:34→21:00)
[2018-04-12] MEDS: LACOSAMIDE 50 MG TABLET PO SCH ×2 (11:34→21:01)
[2018-04-12] MEDS: PANTOPRAZOLE 40 MG TABLET PO SCH (11:55)
[2018-04-12] MEDS: ACETAMINOPHEN TAB 325 MG TAB PO PRN (15:34)
[2018-04-12] MEDS: QUEtiapine 100 MG TAB PO SCH ×2 (17:35→21:01)
[2018-04-12] MEDS: ZIPRASIDONE 20 MG VIAL IM PRN (18:20)
[2018-04-12] MEDS: ATORVASTATIN 10 MG TAB PO SCH (21:00)
[2018-04-13] MEDS: ACETAMINOPHEN TAB 325 MG TAB PO PRN ×2 (05:07→23:50)
[2018-04-13] MEDS: BENZOCAINE/MENTHOL LOZENG 1 EACH LOZENGE MUCOUS MEM PRN ×3 (05:08→12:08)
[2018-04-13] MEDS: levETIRAcetam 500 MG TAB PO SCH ×2 (08:48→20:22)
[2018-04-13] MEDS: PANTOPRAZOLE 40 MG TABLET PO SCH (08:48)
[2018-04-13] MEDS: DOCUSATE 100 MG CAP PO SCH (08:48)
[2018-04-13] MEDS: LACOSAMIDE 50 MG TABLET PO SCH ×2 (08:48→20:22)
[2018-04-13] MEDS: MEMANTINE 10 MG TAB PO SCH ×2 (08:48→20:22)
[2018-04-13] MEDS: clonazePAM 0.5 MG TAB PO SCH ×2 (08:48→20:21)
[2018-04-13] MEDS: APIXABAN 5 MG TAB PO SCH ×2 (08:48→20:21)
[2018-04-13] MEDS: VALPROIC ACID ORAL SOLN 250 MG/5 ML CUP PO SCH (08:49)
[2018-04-13] MEDS: DONEPEZIL 10 MG TAB PO SCH (12:08)
[2018-04-13] MEDS: ASPIRIN 81 MG PO SCH (12:09)
--- NOTE | 2018-04-13 12:44 | P.PN ---
Progress Note - Text Interval history: The patient is found in his room again he provides no verbal responses. Information regarding his progress is taken from nursing staff and observation of him on the mental health unit. He was observed ambulating this morning going to the desk monitor making a variety statements. He was not agitated at that time. It was reported that he threw a meal tray yesterday and he received an injection of Geodon. Mental status exam: The patient continues to provide no verbal responses to me when trying to engage him in a session. He is lying in bed he is resting comfortably he demonstrates no acute distress or agitation. His insight and judgment remain impaired. He has an ongoing cognitive deficit with impediment of speech. Plan: The patient continues to engage in some impulsive behavior. This typically is in response to not getting a demand met. We will try to employ behavioral strategies to improve his behavior. We will monitor him for safety. We will consider titrating his medication.
[2018-04-13] MEDS: TIOTROPIUM 18 MCG/PUFF INHALER INHALATION SCH ×2 (13:11→18:44)
[2018-04-13] MEDS: SYMBICORT 80-4.5 MCG INHALER INHALATION SCH ×2 (13:11→18:46)
[2018-04-13] MEDS: ZIPRASIDONE 20 MG VIAL IM PRN (14:45)
[2018-04-13] MEDS: QUEtiapine 100 MG TAB PO SCH ×3 (16:58→20:22)
[2018-04-13] MEDS: ATORVASTATIN 10 MG TAB PO SCH (20:21)
[2018-04-14] MEDS: ACETAMINOPHEN TAB 325 MG TAB PO PRN ×3 (07:44→22:44)
[2018-04-14] MEDS: SYMBICORT 80-4.5 MCG INHALER INHALATION SCH ×2 (08:12→19:49)
[2018-04-14] MEDS: VALPROIC ACID ORAL SOLN 250 MG/5 ML CUP PO SCH (08:38)
[2018-04-14] MEDS: ASPIRIN 81 MG PO SCH (08:39)
[2018-04-14] MEDS: levETIRAcetam 500 MG TAB PO SCH ×2 (08:39→21:48)
[2018-04-14] MEDS: DOCUSATE 100 MG CAP PO SCH (08:39)
[2018-04-14] MEDS: LACOSAMIDE 50 MG TABLET PO SCH ×2 (08:39→21:49)
[2018-04-14] MEDS: clonazePAM 0.5 MG TAB PO SCH ×2 (08:39→21:49)
[2018-04-14] MEDS: MEMANTINE 10 MG TAB PO SCH ×2 (08:39→21:48)
[2018-04-14] MEDS: APIXABAN 5 MG TAB PO SCH ×2 (08:39→21:48)
[2018-04-14] MEDS: DONEPEZIL 10 MG TAB PO SCH (08:40)
[2018-04-14] MEDS: PANTOPRAZOLE 40 MG TABLET PO SCH (08:40)
--- NOTE | 2018-04-14 12:15 | P.PN ---
Progress Note - Text Interval history: The patient is found in his room he is lying in bed completely covered with a blanket. He is verbally arousable. As I'm trying to speak with him he gets up he makes his bed and walks out of the room. He provides no verbal responses to my questions. He was not willing to be seated in an interview room. Staff report that the patient removed a thermostat from the wall. He does continue to demonstrate behavioral issues. No physical aggressiveness towards staff or other patients in the last 24 hours. He has been tolerating his medication. He has been on the Depakote increase for 5 days now we will draw a Depakote level tomorrow morning. Mental status exam: The patient is alert he is dressed in his own clothing. He is observed ambulating in the hallway without ataxia. He ate breakfast this morning. I observed him making his bed. He provides no verbal responses to questions. Insight and judgment limited. He has a known intellectual disability. He has an impediment of speech. Plan: The patient will continue his current medication we will draw a Depakote level tomorrow morning. He will intermittently demonstrate maladaptive behavior. This is most likely going to respond to behavioral interventions rather than increasing his medication. We will discuss further during team meeting. Vital signs reviewed.
[2018-04-14] MEDS: QUEtiapine 100 MG TAB PO SCH ×2 (16:16→21:49)
[2018-04-14] MEDS: ATORVASTATIN 10 MG TAB PO SCH (21:48)
[2018-04-15] MEDS: ACETAMINOPHEN TAB 325 MG TAB PO PRN ×3 (04:19→17:15)
[2018-04-15] MEDS: BENZOCAINE/MENTHOL LOZENG 1 EACH LOZENGE MUCOUS MEM PRN (05:34)
[2018-04-15 05:52] VITALS: RESP 16; TEMP 98
[2018-04-15 05:53] VITALS: BP 133/82; PULSE 88
[2018-04-15] MEDS: SYMBICORT 80-4.5 MCG INHALER INHALATION SCH ×2 (08:38→20:17)
[2018-04-15] MEDS: TIOTROPIUM 18 MCG/PUFF INHALER INHALATION SCH (08:38)
[2018-04-15 10:01] LABS: Valproic Acid (Depakene) 24.4 ug/mL
[2018-04-15] MEDS: MEMANTINE 10 MG TAB PO SCH ×2 (10:51→20:28)
[2018-04-15] MEDS: DOCUSATE 100 MG CAP PO SCH (10:51)
[2018-04-15] MEDS: DONEPEZIL 10 MG TAB PO SCH (10:52)
[2018-04-15] MEDS: VALPROIC ACID ORAL SOLN 250 MG/5 ML CUP PO SCH (10:52)
[2018-04-15] MEDS: APIXABAN 5 MG TAB PO SCH ×2 (10:52→20:28)
[2018-04-15] MEDS: ASPIRIN 81 MG PO SCH (10:52)
[2018-04-15] MEDS: clonazePAM 0.5 MG TAB PO SCH ×2 (10:52→20:28)
[2018-04-15] MEDS: LACOSAMIDE 50 MG TABLET PO SCH ×2 (10:52→20:29)
[2018-04-15] MEDS: levETIRAcetam 500 MG TAB PO SCH ×2 (10:52→20:28)
[2018-04-15] MEDS: PANTOPRAZOLE 40 MG TABLET PO SCH (10:52)
--- NOTE | 2018-04-15 10:58 | P.PN ---
Progress Note - Text Interval history: The patient is found in his room he is lying in bed covered with his blanket. He does provide some verbal responses today and was less agitated during this interaction. He has inquiries as to whether or not he should be on heparin injections. He asks other medication questions. He indicates his mood is okay. He was interactive for a brief amount of time. He was observed ambulating the hallway this morning. Mental status exam: The patient is alert he is lying in bed he makes no eye contact is covered with his blanket he does provide some verbal responses. He demonstrates no agitation verbally towards me today. He asked some questions regarding medical care. He reports no thoughts of harming himself. Insight and judgment limited. It is difficult at times to understand what he is saying due to his impediment of speech. He has a chronic history of intellectual disability. No abnormal involuntary movements. Plan: The patient will continue on his current medication the Depakote level was drawn this morning. We will monitor him for safety. During team we discussed behavioral strategies of trying to reinforce good behavior and food items seem to be of interest to him. Vital signs reviewed. We will monitor him for safety.
[2018-04-15] MEDS: QUEtiapine 100 MG TAB PO SCH ×2 (17:13→22:16)
[2018-04-15] MEDS: ATORVASTATIN 10 MG TAB PO SCH (20:28)
[2018-04-16] MEDS: ACETAMINOPHEN TAB 325 MG TAB PO PRN ×2 (02:13→08:53)
[2018-04-16] MEDS: VALPROIC ACID ORAL SOLN 250 MG/5 ML CUP PO SCH (08:30)
[2018-04-16] MEDS: MEMANTINE 10 MG TAB PO SCH ×2 (08:32→20:24)
[2018-04-16] MEDS: LACOSAMIDE 50 MG TABLET PO SCH ×2 (08:32→20:23)
[2018-04-16] MEDS: clonazePAM 0.5 MG TAB PO SCH ×2 (08:32→20:23)
[2018-04-16] MEDS: PANTOPRAZOLE 40 MG TABLET PO SCH (08:32)
[2018-04-16] MEDS: DOCUSATE 100 MG CAP PO SCH (08:32)
[2018-04-16] MEDS: DONEPEZIL 10 MG TAB PO SCH (08:32)
[2018-04-16] MEDS: ASPIRIN 81 MG PO SCH (08:32)
[2018-04-16] MEDS: APIXABAN 5 MG TAB PO SCH ×2 (08:32→20:24)
[2018-04-16] MEDS: levETIRAcetam 500 MG TAB PO SCH ×2 (08:32→20:24)
--- NOTE | 2018-04-16 09:52 | P.PN ---
Progress Note - Text Interval history: The patient's is found in the hallway he follows me to his room to speak. He is seated on his bed. He continues to ask for his B12 injection and subcu heparin twice a day. We discussed that the heparin is not necessary as he is sufficiently ambulating throughout the day. We will look to see when his last B12 injection was given area he indicates his mood is okay. He remained silent for other questions and then calmly walked out of the room. Mental status exam: The patient is alert he is dressed in his own clothing. Eye contact is intermittent he does keep his eyes closed for significant portion of our interaction. He is difficult to understand at times due to his impediment of speech. He is focused on the idea of getting these injections that he feels he needs. He demonstrated no verbal or physical aggressiveness. Insight and judgment are chronically limited intellectually he is chronically limited. He maintains a flat affect. Plan: The patient will continue on his current medication. The Depakote level went up minimally to 24.4 liver enzymes remain within normal limits. I will confer with staff regarding his behavior over the last 24 hours. We will plan to discharge him once we see several consecutive days with no aggressive behavior. Vital signs reviewed.
[2018-04-16 13:19] VITALS: BMI 24.4
[2018-04-16] MEDS: SYMBICORT 80-4.5 MCG INHALER INHALATION SCH ×3 (15:33→21:17)
[2018-04-16] MEDS: TIOTROPIUM 18 MCG/PUFF INHALER INHALATION SCH (15:34)
[2018-04-16] MEDS: QUEtiapine 100 MG TAB PO SCH ×2 (16:05→20:23)
[2018-04-16] MEDS: ATORVASTATIN 10 MG TAB PO SCH (20:24)
[2018-04-17] MEDS: VALPROIC ACID ORAL SOLN 250 MG/5 ML CUP PO SCH (09:01)
[2018-04-17] MEDS: clonazePAM 0.5 MG TAB PO SCH (09:02)
[2018-04-17] MEDS: PANTOPRAZOLE 40 MG TABLET PO SCH (09:03)
[2018-04-17] MEDS: APIXABAN 5 MG TAB PO SCH (09:03)
[2018-04-17] MEDS: DONEPEZIL 10 MG TAB PO SCH (09:03)
[2018-04-17] MEDS: MEMANTINE 10 MG TAB PO SCH (09:03)
[2018-04-17] MEDS: levETIRAcetam 500 MG TAB PO SCH (09:03)
[2018-04-17] MEDS: LACOSAMIDE 50 MG TABLET PO SCH (09:03)
[2018-04-17] MEDS: ASPIRIN 81 MG PO SCH (09:03)
[2018-04-17] MEDS: DOCUSATE 100 MG CAP PO SCH (09:03)
[2018-04-17] MEDS: SYMBICORT 80-4.5 MCG INHALER INHALATION SCH (09:07)
[2018-04-17] MEDS: TIOTROPIUM 18 MCG/PUFF INHALER INHALATION SCH ×2 (09:07→09:27)
--- NOTE | 2018-04-17 09:43 | P.DS ---
Providers Date of admission: 04/02/18 19:51 Expected date of discharge: 04/17/18 Attending physician: Bruce Olson Consults: 04/02/18 20:42 Consult Physician Routine Consulting Provider: Earl Barrett Consult Reason/Comments: follow up H & P Do you want consulting provider notified?: Yes Primary care physician: Physician Nonstaff - Discharge Diagnosis(es) (1) Intellectual disability Current Visit: Yes Status: Acute Priority: High Hospital Course: Brief summary of admission note: This patient is a 62-year-old male who was admitted to the mental health unit through the emergency room. The patient was residing and extended care facility in [place] for 6 weeks prior to this admission. He was sent and due to combative behavior and being verbally abusive. The behavior was reported to have worsened over the last week. Head CT was performed which was negative for any acute process lab work were essentially normal although there was a suspicion of a urinary tract infection. The patient is known to have intellectual disability with a significant impediment of speech. For full details please refer to my psychiatric evaluation dated 04/03/2018. Summary of hospital course: The patient was initially continued on his outpatient psychotropic medications including Depakote Aricept Namenda Seroquel and Klonopin. The urinary tract infection was treated with antibiotics. He was seen by internal medicine for routine history and physical exam. The patient's initially demonstrated more verbal aggressiveness. He was physically aggressive on one occasion and required use of restraints. He was receiving injectable medications for behavior issues but has not received an injection for several days. His Depakote was changed to the liquid form and increase to 1000 mg daily. His Seroquel was titrated to include 100 mg dose at 1700. Aricept Namenda and Klonopin were continued. The patient was ambulatory the whole hospitalization he demonstrated no ataxia. For many encounters he was nonverbal with me but over the last several days he has been participating although briefly. He has demonstrated no agitation during our interactions. He does continue to have some behavioral issues that are likely part of his baseline due to his intellectual disability. These would seem to respond best to a specific behavioral plan with positive reinforcement. Mental status exam: The patient is alert he is dressed in his own clothing eye contact is intermittent. He interacts with me briefly today. He reports no thoughts of wanting to harm himself or others he states his mood is "okay". Affect is constricted to blunted. He does not answer questions regarding symptoms of psychosis. He demonstrates no verbal or physical aggressiveness during our interaction. Given the brief answers he provides today his thought process appears linear. He demonstrates no abnormal involuntary movements. Insight and judgment are chronically limited by his intellectual disability. He demonstrates a chronic impediment of speech. He is in no acute distress he ambulates appropriately without ataxia. Impressions 1. Intellectual disability, rule out psychosis rule out recent delirium due to presumed UTI rule out independent neurocognitive disorder 2. History of seizure disorder, hypertension, GERD, history of PE Plan: The patient will be discharged mental health unit today back to the extended care [facility] in [place] where he resides. He will continue on Depakene syrup 1000 mg daily, Seroquel 100 mg at 5pm 300 mg at bedtime, Namenda 10 mg twice daily, Aricept 10 mg daily, Klonopin 0.5 mg in the morning and 1.5 mg at bedtime. The patient does not require continued psychiatric hospitalization on this unit. Again I recommend a behavioral plan for him in the extended care facility utilizing positive reinforcement. Patient Condition at Discharge: Stable Plan - Discharge Summary New Discharge Prescriptions: New QUEtiapine [SEROquel] 100 mg PO 1700 #30 tab Valproic Acid Oral Soln [Depakene Syrup] 1,000 mg PO DAILY #600 ml Continue Acetaminophen [Tylenol] 650 mg PO Q6HR PRN PRN Reason: Pain Lacosamide [Vimpat] 100 mg PO BID levETIRAcetam [Keppra] 1,000 mg PO BID Apixaban [Eliquis] 5 mg PO BID Tiotropium [place] [Spiriva] 1 cap INHALATION RT-DAILY Pantoprazole Sodium [Protonix] 40 mg PO DAILY Atorvastatin Calcium [Lipitor] 10 mg PO HS Fluticasone/Vilanterol [Breo Ellipta 100-25 Mcg Inhaler] 1 puff INHALATION RT -DAILY Docusate [Colace] 100 mg PO DAILY Aspirin EC [Ecotrin Low Dose] 81 mg PO DAILY clonazePAM [KlonoPIN] 1.5 mg PO HS #90 tablet clonazePAM [KlonoPIN] 0.5 mg PO QAM@0900 #30 tablet Donepezil [Aricept] 10 mg PO DAILY #30 tab Memantine [Namenda] 10 mg PO BID #60 tab QUEtiapine FUMARATE [SEROquel] 300 mg PO HS #30 tablet Discontinued Divalproex Sodium [Divalproex Sodium ER] 500 mg PO BID OLANZapine [ZyPREXA Zydis] 5 mg PO Q12H PRN PRN Reason: Agitation Discharge Medication List Acetaminophen [Tylenol] 650 mg PO Q6HR PRN 03/28/18 [History] Apixaban [Eliquis] 5 mg PO BID 03/28/18 [History] Aspirin EC [Ecotrin Low Dose] 81 mg PO DAILY 03/28/18 [History] Atorvastatin Calcium [Lipitor] 10 mg PO HS 03/28/18 [History] Docusate [Colace] 100 mg PO DAILY 03/28/18 [History] Fluticasone/Vilanterol [Breo Ellipta 100-25 Mcg Inhaler] 1 puff INHALATION RT- DAILY 03/28/18 [History] Lacosamide [Vimpat] 100 mg PO BID 03/28/18 [History] Pantoprazole Sodium [Protonix] 40 mg PO DAILY 03/28/18 [History] Tiotropium [place] [Spiriva] 1 cap INHALATION RT-DAILY 03/28/18 [History] levETIRAcetam [Keppra] 1,000 mg PO BID 03/28/18 [History] Donepezil [Aricept] 10 mg PO DAILY #30 tab 04/17/18 [Rx] Memantine [Namenda] 10 mg PO BID #60 tab 04/17/18 [Rx] QUEtiapine FUMARATE [SEROquel] 300 mg PO HS #30 tablet 04/17/18 [Rx] QUEtiapine [SEROquel] 100 mg PO 1700 #30 tab 04/17/18 [Rx] Valproic Acid Oral Soln [Depakene Syrup] 1,000 mg PO DAILY #600 ml 04/17/18 [Rx] clonazePAM [KlonoPIN] 0.5 mg PO QAM@0900 #30 tablet 04/17/18 [Rx] clonazePAM [KlonoPIN] 1.5 mg PO HS #90 tablet 04/17/18 [Rx] Follow up Appointment(s)/Referral(s): Nonstaff,Physician [Primary Care Provider] - 1-2 days
== END 2018-04-17 15:28 | DRG 884 ==
LOC: EC 19:09 → EDSTATUS 19:09 → 3MHU 19:51 → EEVIPCON 19:51 → EC 19:51 → 3MHU 20:19 → UNDOADMIN 20:19 → 3MHU 04-04 02:37
PROVIDERS: ADMIT Psychiatry & Neurology Psychiatry; ATTEND Psychiatry & Neurology Psychiatry
DX: F79 Unspecified intellectual disabilities (principal); N39.0 Urinary tract infection, site not specified; E07.9 Disorder of thyroid, unspecified; F25.9 Schizoaffective disorder, unspecified; G31.84 Mild cognitive impairment of uncertain or unknown etiology; G40.909 Epilepsy, unspecified, not intractable, without status epilepticus; I10 Essential (primary) hypertension; J44.9 Chronic obstructive pulmonary disease, unspecified; K21.9 Gastro-esophageal reflux disease without esophagitis; Z79.01 Long term (current) use of anticoagulants; Z79.82 Long term (current) use of aspirin; Z79.899 Other long term (current) drug therapy; Z86.711 Personal history of pulmonary embolism; Z88.8 Allergy status to other drugs, medicaments and biological substances; Z78.1 Physical restraint status
CPT/HCPCS: 80164; 80177; 82075; 84450; 84460; 87086; 94640; 99285

== ENCOUNTER 2018-04-18 11:31 | Inpatient (IN) | payer MEDICARE, MEDICAID ==
[2018-04-18] MEDS ORDERED: LORazepam 2 MG/ML INJ IV STA (11:57)
[2018-04-18 12:43] LABS: Basophils % (A) 0 %; Eosinophils # (A) 0.1 k/uL (0-0.7); Eosinophils % (A) 2 %; HCT 34.6 % (39.0-53.0); HGB 11.2 gm/dL (13.0-17.5); Hypochromasia Slight; Lymphocytes # (A) 1.4 k/uL (1.0-4.8); Lymphocytes % (A) 19 %; MCH 28.2 pg (25.0-35.0); MCHC 32.3 g/dL (31.0-37.0); MCV 87.3 fL (80.0-100.0); Mean Platelet Volume 6.8; Monocytes # (A) 0.5 k/uL (0-1.0); Monocytes % (A) 7 %; Neutrophils % (A) 70 %; Platelet Count 281 k/uL (150-450); RBC 3.97 m/uL (4.30-5.90); RDW 15.3 % (11.5-15.5); WBC 7.2 k/uL (3.8-10.6)
[2018-04-18 12:57] LABS: ALT 22 U/L (21-72); AST 19 U/L (17-59); Albumin 3.9 g/dL (3.5-5.0); Alkaline Phosphatase 71 U/L (38-126); Anion Gap 10 mmol/L; Blood Urea Nitrogen 17 mg/dL (9-20); Calcium 9.2 mg/dL (8.4-10.2); Carbon Dioxide 29 mmol/L (22-30); Chloride 99 mmol/L (98-107); Glucose 81 mg/dL (74-99); Potassium 5.1 mmol/L (3.5-5.1); Sodium 138 mmol/L (137-145); Total Bilirubin 0.4 mg/dL (0.2-1.3); Total Protein 6.8 g/dL (6.3-8.2)
[2018-04-18 13:03] LABS: INR 1.1 (<1.2); Partial Thromboplastin Time 30.6 sec (22.0-30.0); Prothrombin Time 10.7 sec (9.0-12.0)
[2018-04-18 13:11] LABS: Appearance,Urine Clear (Clear); Bilirubin,Urine Negative (Negative); Blood,Urine Negative (Negative); Color,Urine Colorless; Glucose,Urine (UA) Negative (Negative); Ketones,Urine Negative (Negative); Leukocyte Esterase,Urine Negative (Negative); Nitrite,Urine Negative (Negative); Protein,Urine Negative (Negative); Specific Gravity,Urine 1.006 (1.001-1.035); Urobilinogen,Urine <2.0 mg/dL (<2.0)
--- NOTE | 2018-04-18 13:20 | CT ---
EXAMINATION TYPE: CT brain wo con DATE OF EXAM: 04/18/2018 COMPARISON: 03/29/2018 INDICATION: Patient shows signs of altered mental status. DLP: 799 mGycm, Automated exposure control for dose reduction was used. CONTRAST: None CT of the brain is performed utilizing 3 mm thick sections through the posterior fossa and 3 mm thick sections through the remaining calvarium. Study is performed within 24 hours of arrival to the hosp [facility]. No abnormal hyperdensity is present to suggest an acute intracranial hemorrhage. No mass lesion is evident. No acute infarcts are evident. Mild periventricular white matter hypodensity is present, likely on th e basis of chronic white matter ischemic changes. Ventricles and sulci are appropriate for the patient age. Paranasal sinuses and mastoid air cells within the [id number] are clear. No significant change from the comparison is evident. IMPRESSIONS: 1. Mild chronic appearing white matter changes.
[2018-04-18 13:22] LABS: Creatine Kinase 99 U/L (55-170)
--- NOTE | 2018-04-18 13:23 | XR ---
EXAMINATION TYPE: XR chest 2V DATE OF EXAM: 04/18/2018 COMPARISON: 03/29/2018 TECHNIQUE: PA and lateral views submitted. HISTORY: Altered mental status FINDINGS: There is diffuse osseous demineralization, atypical given the patient's age. There is an exaggerated thoracic kyphosis and mild multilevel degenerative change of the thoracic spine. No focal consolidati on, pleural effusion or pneumothorax. Cardiomediastinal silhouette is upper limits of normal. Partial visualization of cervical fusion silvia ce is seen. Appears to be ectasia of the thoracic aorta. Compression deformities in the thoracic spin e spine are likely chronic. Nodule at the left lung base likely related to nipple shadow. Chronic rib deformities are seen. There is patchy density along the lateral margin of the right midlung. Additionally question a nodule within the right midlung. Hyperinflation is suggestive of COPD. IMPRESSION: 1. COPD. Patchy area of infiltrate lateral margin right midlung. Could not exclude a pulmonary nodule .
[2018-04-18 13:28] LABS: Amphetamine Screen,Urine Not Detected (NotDetected); Barbiturate Screen,Urine Not Detected (NotDetected); Benzodiazepines Screen,Urine Not Detected (NotDetected); Cocaine Screen,Urine Not Detected (NotDetected); Methadone Screen, Urine Not Detected (NotDetected); Opiate Screen,Urine Not Detected (NotDetected); Oxycodone Screen, Urine Not Detected (NotDetected); Phencyclidine Screen,Urine Not Detected (NotDetected); Tricyclic Antidepressant,Urine Not Detected (NotDetected); Urn Cannabinoid Scrn Not Detected (NotDetected)
[2018-04-18 13:35] LABS: Troponin I <0.012 ng/mL (0.000-0.034)
[2018-04-18 13:37] LABS: Creatine Kinase MB 2.9 ng/mL (0.0-2.4)
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
[2018-04-19] MEDS ORDERED: LORazepam 1 MG TAB PO STA (05:34)
[2018-04-19] MEDS ORDERED: LORazepam 2 MG/ML INJ IM STA (11:21)
[2018-04-19] MEDS ORDERED: HALOPERIDOL LACTATE 5 MG/ML 1 ML VIAL IM STA (11:28)
[2018-04-20] MEDS ORDERED: MAG HYDROX/AL HYDROX/SIMETH 30 ML CUP PO PRN (15:21)
[2018-04-20] MEDS ORDERED: MAGNESIUM HYDROXIDE 2,400 MG/10 ML CUP PO PRN (15:21)
[2018-04-20] MEDS: levETIRAcetam 500 MG TAB PO SCH ×2 (17:23→20:26)
[2018-04-20] MEDS: QUEtiapine 100 MG TAB PO SCH ×2 (17:23→20:25)
[2018-04-20] MEDS: LACOSAMIDE 50 MG TABLET PO SCH (20:24)
[2018-04-20] MEDS: ATORVASTATIN 10 MG TAB PO SCH (20:24)
[2018-04-20] MEDS: clonazePAM 0.5 MG TAB PO SCH (20:25)
[2018-04-20] MEDS: MEMANTINE 10 MG TAB PO SCH ×2 (21:59→22:33)
[2018-04-20] MEDS: APIXABAN 5 MG TAB PO SCH ×2 (21:59→22:33)
[2018-04-21] MEDS: ACETAMINOPHEN TAB 325 MG TAB PO PRN ×2 (02:56→16:34)
[2018-04-21] MEDS: VALPROIC ACID ORAL SOLN 250 MG/5 ML CUP PO SCH (08:39)
[2018-04-21] MEDS: MEMANTINE 10 MG TAB PO SCH ×2 (08:40→21:07)
[2018-04-21] MEDS: PANTOPRAZOLE 40 MG TABLET PO SCH (08:40)
[2018-04-21] MEDS: ASPIRIN 81 MG PO SCH (08:40)
[2018-04-21] MEDS: DONEPEZIL 10 MG TAB PO SCH (08:40)
[2018-04-21] MEDS: APIXABAN 5 MG TAB PO SCH ×2 (08:40→21:06)
[2018-04-21] MEDS: levETIRAcetam 500 MG TAB PO SCH ×2 (08:40→21:07)
[2018-04-21] MEDS: DOCUSATE 100 MG CAP PO SCH (08:40)
[2018-04-21] MEDS: LACOSAMIDE 50 MG TABLET PO SCH ×2 (08:41→21:07)
[2018-04-21] MEDS: clonazePAM 0.5 MG TAB PO SCH ×2 (08:41→21:07)
[2018-04-21] MEDS: TIOTROPIUM 18 MCG/PUFF INHALER INHALATION SCH (08:57)
[2018-04-21] MEDS: SYMBICORT 80-4.5 MCG INHALER INHALATION SCH ×3 (08:58→20:29)
[2018-04-21] MEDS ORDERED: LORazepam 2 MG/ML INJ IM PRN (10:42)
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
[2018-04-21] MEDS: QUEtiapine 100 MG TAB PO SCH ×2 (16:34→21:06)
[2018-04-21] MEDS: ATORVASTATIN 10 MG TAB PO SCH (21:06)
[2018-04-21] MEDS: BENZOCAINE/MENTHOL LOZENG 1 EACH LOZENGE MUCOUS MEM PRN (22:02)
--- NOTE | 2018-04-22 00:07 | P.MDCNMH ---
History of Present Illness H&P Date: 04/21/18 Chief Complaint: Aggressive behavior Patient is a 62-year-old male with a known history of mentally challenged, hypertension, GERD and pulmonary embolism as well as seizure disorder including dementia and other multiple medical problems was admitted to ER due to aggressive behavior. Patient point to the staff in the face. Currently patient is cooperative but could not provide much history due to underlying intellectual disability. Patient does have a history of psychosis and schizophrenia and anger issues. Patient is also on multiple psychiatric medications. Patient is also on anticoagulation for pulmonary embolism. Currently patient denied any chest pain or shortness of breath. No nausea vomiting or diarrhea. Complete review of systems could not be obtained from the patient. Urinalysis and the UDS negative. Chest x-rays showed COPD. Patchy areas of infiltrate lateral margin right midlung. Could not exclude a pulmonary nodule EKG showed normal sinus rhythm CT head mild chronic appearing white matter changes. Review of Systems As per HPI. Complete review of systems could not be obtained from the patient Past Medical History Past Medical History: GERD/Reflux, Hypertension, Pneumonia, Pulmonary Embolus ( PE), Seizure Disorder Additional Past Medical History / Comment(s): respirtory failure, sepsis, thrombocytopenia, bladder disfunction History of Any Multi-Drug Resistant Organisms: Unobtainable Past Surgical History: Orthopedic Surgery Additional Past Surgical History / Comment(s): surg scar on posterior neck Smoking Status: Unknown if ever smoked Medications and Allergies Home Medications Medication Instructions Recorded Confirmed Type Acetaminophen [Tylenol] 650 mg PO Q6HR PRN 03/28/18 04/20/18 History Apixaban [Eliquis] 5 mg PO BID@0900,2100 03/28/18 04/20/18 History Aspirin EC [Ecotrin Low Dose] 81 mg PO DAILY 03/28/18 04/20/18 History Atorvastatin Calcium [Lipitor] 10 mg PO HS 03/28/18 04/20/18 History Docusate [Colace] 100 mg PO DAILY 03/28/18 04/20/18 History Fluticasone/Vilanterol [Breo 1 puff INHALATION RT-DAILY 03/28/18 04/20/18 History Ellipta 100-25 Mcg Inhaler] Lacosamide [Vimpat] 100 mg PO BID@0900,2100 03/28/18 04/20/18 History Pantoprazole Sodium [Protonix] 40 mg PO DAILY 03/28/18 04/20/18 History Tiotropium Franklin [Spiriva] 1 cap INHALATION RT-DAILY 03/28/18 04/20/18 History levETIRAcetam [Keppra] 1,000 mg PO BID@0900,2100 03/28/18 04/20/18 History Donepezil [Aricept] 10 mg PO DAILY #30 tab 04/17/18 04/20/18 Rx QUEtiapine FUMARATE [SEROquel] 300 mg PO HS #30 tablet 04/17/18 04/20/18 Rx clonazePAM [KlonoPIN] 0.5 mg PO QAM@0900 #30 tablet 04/17/18 04/20/18 Rx clonazePAM [KlonoPIN] 1.5 mg PO HS #90 tablet 04/17/18 04/20/18 Rx ALPRAZolam [Xanax] 0.5 mg PO DAILY 04/18/18 04/20/18 History Memantine [Namenda] 10 mg PO BID@0900,2100 04/18/18 04/20/18 History QUEtiapine [SEROquel] 100 mg PO DAILY@1700 04/18/18 04/20/18 History Valproic Acid Oral Soln [Depakene 1,000 mg PO DAILY@0800 04/18/18 04/20/18 History Syrup] Allergies Allergy/AdvReac Type Severity Reaction Status Date / Time benztropine Allergy Unknown Verified 04/20/18 21:21 Physical Exam Vitals: Vital Signs Temp Pulse Pulse Resp BP BP Pulse Ox 04/21/18 06:55 101 H 18 118/79 04/20/18 18:33 99.1 F 88 16 126/90 04/20/18 15:46 98.1 F 82 16 130/70 100 PHYSICAL EXAMINATION: Patient is lying in the bed comfortably, no acute distress, awake alert and oriented.. HEENT: Normocephalic. Neck is supple. Pupils reactive. Nostrils clear. Oral cavity is moist. Ears reveal no drainage. Neck reveals no JVD, carotid bruits, or thyromegaly. CHEST EXAMINATION: Trachea is central. Symmetrical expansion. Lung mcdonough clear to auscultation and percussion. CARDIAC: Normal S1, S2 with no gallops. No murmurs ABDOMEN: Soft. Bowel sounds normal. No organomegaly. No abdominal bruits. Extremities: reveal no edema. No clubbing or cyanosis Neurologically awake, alert, oriented x1-2 with well-coordinated movements. Mentally challenged. No focal deficits noted Skin: No rash or skin lesions. Psychiatric: Coperative. Could not be assessed completely. Musculoskeletal: No joint swelling or deformity. Normal range of motion. Cranial Nerve Examination - Cranial Nerves Cranial Nerve I- Olfactory: Intact Cranial Nerve II- Optic: Intact Cranial Nerve III- Oculomotor: Intact Cranial Nerve IV- Trochlear: Intact Cranial Nerve V- Trigeminal: Intact Cranial Nerve - Abducens: Intact Cranial Nerve VII- Facial: Intact Cranial Nerve VIII- Auditory: Intact Cranial Nerve IX- Glossopharyngeal: Intact Cranial Nerve X- Vagus: Intact Cranial Nerve XI- Accessory: Intact Cranial Nerve XII- Hypoglossal: Intact Results CBC & Chem 7: 04/18/18 12:31 18 12:31 Assessment and Plan Assessment: Acute aggressive behavior with underlying dementia Acute psychosis Mentally challenged Hypertension controlled GERD Pulmonary embolism. On anticoagulation Seizure disorder History of orthopedic surgery Plan: Patient will be continued on current home medications. Currently patient is cooperative but unable to provide much history. We'll continue the current medical management and follow closely. Continue with the home medications. Further recommendations based on the clinical course. Time with Patient: Greater than 30
[2018-04-22] MEDS: TIOTROPIUM 18 MCG/PUFF INHALER INHALATION SCH (08:15)
[2018-04-22] MEDS: SYMBICORT 80-4.5 MCG INHALER INHALATION SCH ×2 (08:15→20:39)
[2018-04-22] MEDS: VALPROIC ACID ORAL SOLN 250 MG/5 ML CUP PO SCH (10:35)
[2018-04-22] MEDS: clonazePAM 0.5 MG TAB PO SCH ×2 (10:36→20:19)
[2018-04-22] MEDS: DONEPEZIL 10 MG TAB PO SCH (10:36)
[2018-04-22] MEDS: DOCUSATE 100 MG CAP PO SCH (10:36)
[2018-04-22] MEDS: ASPIRIN 81 MG PO SCH (10:36)
[2018-04-22] MEDS: APIXABAN 5 MG TAB PO SCH ×2 (10:36→20:21)
[2018-04-22] MEDS: PANTOPRAZOLE 40 MG TABLET PO SCH (10:36)
[2018-04-22] MEDS: MEMANTINE 10 MG TAB PO SCH ×2 (10:36→20:21)
[2018-04-22] MEDS: LACOSAMIDE 50 MG TABLET PO SCH ×2 (10:37→20:20)
[2018-04-22] MEDS: levETIRAcetam 500 MG TAB PO SCH ×2 (10:37→20:19)
[2018-04-22] MEDS: ACETAMINOPHEN TAB 325 MG TAB PO PRN ×2 (10:38→15:23)
--- NOTE | 2018-04-22 11:00 | P.PN ---
Progress Note - Text Interval history: The patient is found in his room he is awake in bed. He does not participate in the interview this morning. The psychiatric evaluation note was reviewed. He was readmitted for making threatening statements towards his roommate. Staff report that the patient has been cooperative so far in terms of no aggressive behavior. He has been eating. He has been ambulating without difficulty. Again he has a history of intellectual disability. Mental status exam: The patient is alert he is lying in bed he makes no eye contact he provides no verbal responses. He does move his extremities as he is lying in bed he is in no acute distress. Later he was observed ambulating. He demonstrates a flat affect. Insight and judgment chronically limited due to intellectual disability. He demonstrates no abnormal involuntary movements. During our interaction there was no evidence of any verbal or physical aggressiveness. Plan: Continue current psychotropic medications. We discussed that the patient would most appropriately belong in an A[facility] type setting. We discussed behavioral strategies for him on the mental health unit such as giving him tasks and rewarding appropriate behavior. Social work will contact his guardian to discuss placement options. Vital signs reviewed.
[2018-04-22] MEDS: BENZOCAINE/MENTHOL LOZENG 1 EACH LOZENGE MUCOUS MEM PRN (13:38)
[2018-04-22] MEDS: QUEtiapine 100 MG TAB PO SCH ×2 (16:45→20:20)
[2018-04-22] MEDS: ATORVASTATIN 10 MG TAB PO SCH (20:21)
[2018-04-22] MEDS: HALOPERIDOL LACTATE 5 MG/ML 1 ML VIAL IM PRN (20:25)
--- NOTE | 2018-04-22 22:36 | P.MHFACE ---
Face to Face Eval of Restraint - Evaluation Patient's Immediate Situation: Endangers others' safety, Endangers staff safety , Violent behavior Patient's Reaction to the Intervention: Angry, Suspicious, Aggressive, Combative , Resistive to care Patient's Medical & Behavioral Condition: Awake, Alert, Follows directions, Agitated Need to Continue or Terminate Restraint or Seclusion: Continue
[2018-04-23] MEDS: VALPROIC ACID ORAL SOLN 250 MG/5 ML CUP PO SCH (09:06)
[2018-04-23] MEDS: LACOSAMIDE 50 MG TABLET PO SCH ×2 (09:07→20:35)
[2018-04-23] MEDS: clonazePAM 0.5 MG TAB PO SCH ×2 (09:07→20:35)
[2018-04-23] MEDS: levETIRAcetam 500 MG TAB PO SCH ×2 (09:07→20:35)
[2018-04-23] MEDS: DONEPEZIL 10 MG TAB PO SCH (09:08)
[2018-04-23] MEDS: MEMANTINE 10 MG TAB PO SCH ×2 (09:08→20:35)
[2018-04-23] MEDS: APIXABAN 5 MG TAB PO SCH ×2 (09:08→20:35)
[2018-04-23] MEDS: PANTOPRAZOLE 40 MG TABLET PO SCH (09:08)
[2018-04-23] MEDS: DOCUSATE 100 MG CAP PO SCH (09:08)
[2018-04-23] MEDS: ASPIRIN 81 MG PO SCH (09:08)
[2018-04-23] MEDS: TIOTROPIUM 18 MCG/PUFF INHALER INHALATION SCH (09:11)
[2018-04-23] MEDS: SYMBICORT 80-4.5 MCG INHALER INHALATION SCH ×2 (09:11→21:16)
--- NOTE | 2018-04-23 10:12 | P.PN ---
Progress Note - Text Interval history: The patient is found in his room he is lying in bed awake although he does have himself completely covered with his blanket. He responds to my greeting. He asked me what I want. He indicates his mood is "alright". He indicates he ate breakfast this morning. He indicates he has no pain. With orientation questions he is aware he is in the hospital he names the year correctly he states he thinks it's either March or April he incorrectly names the day of the week as . He provides no answer to some questions. Mental status exam: The patient is lying in bed he is completely covered with a blanket and speaks to me through the blanket. He appears to be in no acute distress there are no abnormal involuntary movements. He demonstrates no verbal or physical agitation. Insight and judgment are chronically impaired he does have intellectual disability. He indicates having no thoughts of harming himself or others. Again he provides no response to some questions asked. No response provided to questions pertaining to psychosis. Plan: The patient will continue on his current medication. It is noted that upon his readmission his Depakote level was less than 10. We're monitoring compliance with his medications here. We will monitor him for safety. We will continue to employ behavioral strategies to prevent agitated/aggressive behavior. Vital signs reviewed.
[2018-04-23] MEDS: ACETAMINOPHEN TAB 325 MG TAB PO PRN ×2 (10:30→16:41)
[2018-04-23] MEDS: QUEtiapine 100 MG TAB PO SCH ×2 (16:39→20:35)
[2018-04-23] MEDS: ATORVASTATIN 10 MG TAB PO SCH (20:35)
[2018-04-24] MEDS: ASPIRIN 81 MG PO SCH (08:46)
[2018-04-24] MEDS ORDERED: DONEPEZIL 10 MG TAB ONE (08:46)
[2018-04-24] MEDS: APIXABAN 5 MG TAB PO SCH ×2 (08:46→21:15)
[2018-04-24] MEDS: MEMANTINE 10 MG TAB PO SCH ×2 (08:46→21:15)
[2018-04-24] MEDS: PANTOPRAZOLE 40 MG TABLET PO SCH (08:46)
[2018-04-24] MEDS ORDERED: LACOSAMIDE 50 MG TABLET ONE (08:46)
[2018-04-24] MEDS: DONEPEZIL 10 MG TAB PO SCH (08:46)
[2018-04-24] MEDS ORDERED: BENZOCAINE/MENTHOL LOZENG 1 EACH LOZENGE MUCOUS MEM ONE (08:46)
[2018-04-24] MEDS: clonazePAM 0.5 MG TAB PO SCH ×2 (08:46→21:16)
[2018-04-24] MEDS ORDERED: clonazePAM 0.5 MG TAB ONE (08:46)
[2018-04-24] MEDS ORDERED: PANTOPRAZOLE 40 MG TABLET PO ONE (08:46)
[2018-04-24] MEDS ORDERED: MEMANTINE 10 MG TAB ONE (08:46)
[2018-04-24] MEDS ORDERED: LORazepam 1 MG TAB ONE (08:46)
[2018-04-24] MEDS ORDERED: TIOTROPIUM 18 MCG/PUFF INHALER INHALATION ONE (08:46)
[2018-04-24] MEDS ORDERED: APIXABAN 5 MG TAB ONE (08:46)
[2018-04-24] MEDS: levETIRAcetam 500 MG TAB PO SCH ×2 (08:46→21:15)
[2018-04-24] MEDS: DOCUSATE 100 MG CAP PO SCH (08:46)
[2018-04-24] MEDS ORDERED: SYMBICORT 80-4.5 MCG INHALER INHALATION ONE (08:46)
[2018-04-24] MEDS ORDERED: ASPIRIN 81 MG ONE (08:46)
[2018-04-24] MEDS ORDERED: DOCUSATE 100 MG CAP ONE (08:46)
[2018-04-24] MEDS ORDERED: levETIRAcetam 500 MG TAB ONE (08:46)
[2018-04-24] MEDS: LACOSAMIDE 50 MG TABLET PO SCH ×2 (08:46→21:15)
--- NOTE | 2018-04-24 10:52 | P.PN ---
Progress Note - Text Interval history: The patient is found in his room he is lying in bed he is awake. Again he does not wish to participate in an interview with me once he realizes I am his treating psychiatrist. He was observed conversing with other staff this morning at the front desk representative. He was observed ambulating in the hallway. He is eating his meals. No report of any events over the evening hours. Documentation from social work suggests that his guardian is pursuing ECF placement in [facility]. Again we want to express her opinion that the patient may be better served in a skilled nursing type setting. Mental status exam: The patient is alert he is lying in bed he is providing no verbal responses today. He was observed interacting with others earlier this morning. Insight and judgment chronically impaired he does have a history of intellectual disability. He demonstrated no verbal or physical aggressiveness during our interaction. Affect flat. He demonstrates no abnormal involuntary movements. Plan: The patient will continue on his current medication we have just increased his Depakote. We will monitor him for safety. We will encourage his participation in the milieu. We will discuss discharge planning with his guardian's office further.
[2018-04-24] MEDS: VALPROIC ACID ORAL SOLN 250 MG/5 ML CUP PO SCH ×2 (12:01→21:16)
[2018-04-24] MEDS: SYMBICORT 80-4.5 MCG INHALER INHALATION SCH ×2 (12:57→21:20)
[2018-04-24] MEDS: TIOTROPIUM 18 MCG/PUFF INHALER INHALATION SCH (12:57)
[2018-04-24] MEDS: QUEtiapine 100 MG TAB PO SCH ×2 (16:45→21:15)
[2018-04-24] MEDS: ATORVASTATIN 10 MG TAB PO SCH (21:15)
[2018-04-25] MEDS: ACETAMINOPHEN TAB 325 MG TAB PO PRN ×3 (02:41→14:38)
[2018-04-25] MEDS: VALPROIC ACID ORAL SOLN 250 MG/5 ML CUP PO SCH ×2 (08:21→20:41)
[2018-04-25] MEDS: LACOSAMIDE 50 MG TABLET PO SCH ×2 (08:22→20:42)
[2018-04-25] MEDS: DOCUSATE 100 MG CAP PO SCH (08:22)
[2018-04-25] MEDS: clonazePAM 0.5 MG TAB PO SCH ×2 (08:22→20:43)
[2018-04-25] MEDS: PANTOPRAZOLE 40 MG TABLET PO SCH (08:22)
[2018-04-25] MEDS: ASPIRIN 81 MG PO SCH (08:22)
[2018-04-25] MEDS: APIXABAN 5 MG TAB PO SCH ×2 (08:22→20:44)
[2018-04-25] MEDS: DONEPEZIL 10 MG TAB PO SCH (08:22)
[2018-04-25] MEDS: MEMANTINE 10 MG TAB PO SCH ×2 (08:22→20:44)
[2018-04-25] MEDS: levETIRAcetam 500 MG TAB PO SCH ×2 (08:23→20:43)
--- NOTE | 2018-04-25 09:18 | P.PN ---
Progress Note - Text Interval history: The patient is found in his room he follows me to the library to speak. He indicates his mood is "alright". He states that he ate breakfast this morning and slept well last night. Staff reported that he only slept 2 hours last evening. We discussed his disposition after discharge. He states he doesn't feel he belongs in a chcf because "I can take care of myself ". I have yet to confer with staff regarding his behavior over the last 24 hours we will discussed during treatment team meeting this morning. He has no questions or concerns regarding his psychotropic medications and appears he has been compliant with them. Mental status exam: The patient is alert he is dressed in the same clothing. Eye contact is improved. For the first time he follows me down to an interview room to speak. He remained calm throughout the interaction. He actually became quite talkative. He does have a chronic impediment of speech which is difficult to understand at times but he did tolerate having to repeat himself. He is reporting no thoughts of harming himself or harming others. He is endorsing no hallucinations. He expresses frustration with being moved around so many times in the recent past. Insight and judgment limited. He demonstrates no verbal or physical aggressiveness. He demonstrates no abnormal involuntary movements. Plan: The patient will continue on his current psychotropic medication. We continue to monitor him for safety. When appropriate we will draw another Depakote level. We are trying to discuss appropriate discharge planning with his guardian. He is encouraged to appropriately participate in the milieu.
[2018-04-25] MEDS: TIOTROPIUM 18 MCG/PUFF INHALER INHALATION SCH (09:25)
[2018-04-25] MEDS: SYMBICORT 80-4.5 MCG INHALER INHALATION SCH ×2 (09:26→21:19)
[2018-04-25] MEDS: BENZOCAINE/MENTHOL LOZENG 1 EACH LOZENGE MUCOUS MEM PRN (14:40)
[2018-04-25] MEDS: QUEtiapine 100 MG TAB PO SCH ×2 (17:19→20:43)
[2018-04-25] MEDS: ATORVASTATIN 10 MG TAB PO SCH (20:42)
[2018-04-26] MEDS: TIOTROPIUM 18 MCG/PUFF INHALER INHALATION SCH (07:37)
[2018-04-26] MEDS: SYMBICORT 80-4.5 MCG INHALER INHALATION SCH ×2 (07:37→21:06)
[2018-04-26] MEDS: LACOSAMIDE 50 MG TABLET PO SCH ×2 (08:25→20:42)
[2018-04-26] MEDS: levETIRAcetam 500 MG TAB PO SCH ×2 (08:25→20:42)
[2018-04-26] MEDS: APIXABAN 5 MG TAB PO SCH ×2 (08:25→20:42)
[2018-04-26] MEDS: DONEPEZIL 10 MG TAB PO SCH (08:25)
[2018-04-26] MEDS: DOCUSATE 100 MG CAP PO SCH (08:26)
[2018-04-26] MEDS: ASPIRIN 81 MG PO SCH (08:26)
[2018-04-26] MEDS: clonazePAM 0.5 MG TAB PO SCH ×2 (08:26→20:42)
[2018-04-26] MEDS: PANTOPRAZOLE 40 MG TABLET PO SCH (08:26)
[2018-04-26] MEDS: MEMANTINE 10 MG TAB PO SCH ×2 (08:26→20:42)
[2018-04-26] MEDS: VALPROIC ACID ORAL SOLN 250 MG/5 ML CUP PO SCH ×2 (08:26→20:42)
[2018-04-26] MEDS: BENZOCAINE/MENTHOL LOZENG 1 EACH LOZENGE MUCOUS MEM PRN ×2 (10:52→17:24)
[2018-04-26] MEDS: ACETAMINOPHEN TAB 325 MG TAB PO PRN ×2 (10:54→16:07)
--- NOTE | 2018-04-26 11:15 | P.PN ---
Progress Note - Text Interval history: The patient sought me out by knocking on the office door. He reports his mood is all right. We discussed placement options. He indicates that he is doing too well to be at a senior care. He states he realizes he can 't stay at the hospital either and doesn't want to keep coming back. Staff report no instances of agitated behavior in the last 24 hours. The patient remains compliant with his medication. He continues to ask for a variety of vaccinations and other shots. We discussed that we would have to obtain his immunization record to see if they are due. Mental status exam: The patient is alert he is cooperative. He appropriate he participates in the conversation. He senses the natural termination of the session and appropriately gets up and leaves the room. He demonstrated no verbal or physical aggressiveness. He was able to demonstrate some insight into his basic function compared to those in the senior care. He acknowledges that he is at a psychiatric hospital and that it is not our goal to have him here for an extended period of time. He does perseverate on the idea of getting injections. He is reporting no suicidal thoughts he is reporting no thoughts of harming others. He is endorsing no auditory or visual hallucinations. Insight and judgment chronically limited he does have a history of intellectual disability. Plan: The patient will continue on his current psychotropic medication. We will draw a Depakote level and liver enzymes Sunday morning. We'll monitor him for safety and encourage appropriate behavior. Social work is asked to again make contact with the guardian so that we can at least have a conversation regarding the appropriateness of discharge to intermediate versus ECF.
[2018-04-26] MEDS: PSEUDOEPHEDRINE 30 MG TAB PO PRN (12:12)
[2018-04-26] MEDS: QUEtiapine 100 MG TAB PO SCH ×2 (16:57→20:42)
[2018-04-26] MEDS: ATORVASTATIN 10 MG TAB PO SCH (20:42)
[2018-04-27] MEDS: ACETAMINOPHEN TAB 325 MG TAB PO PRN ×2 (04:47→13:53)
[2018-04-27] MEDS: BENZOCAINE/MENTHOL LOZENG 1 EACH LOZENGE MUCOUS MEM PRN ×3 (04:48→19:34)
[2018-04-27] MEDS: clonazePAM 0.5 MG TAB PO SCH ×2 (08:09→20:22)
[2018-04-27] MEDS: levETIRAcetam 500 MG TAB PO SCH ×2 (08:10→20:23)
[2018-04-27] MEDS: VALPROIC ACID ORAL SOLN 250 MG/5 ML CUP PO SCH ×2 (08:10→20:23)
[2018-04-27] MEDS: DOCUSATE 100 MG CAP PO SCH (08:10)
[2018-04-27] MEDS: LACOSAMIDE 50 MG TABLET PO SCH ×2 (08:10→20:22)
[2018-04-27] MEDS: PANTOPRAZOLE 40 MG TABLET PO SCH (08:10)
[2018-04-27] MEDS: MEMANTINE 10 MG TAB PO SCH ×2 (08:11→20:22)
[2018-04-27] MEDS: DONEPEZIL 10 MG TAB PO SCH (08:11)
[2018-04-27] MEDS: ASPIRIN 81 MG PO SCH (08:11)
[2018-04-27] MEDS: APIXABAN 5 MG TAB PO SCH ×2 (08:11→20:22)
[2018-04-27] MEDS: TIOTROPIUM 18 MCG/PUFF INHALER INHALATION SCH (09:30)
[2018-04-27] MEDS: SYMBICORT 80-4.5 MCG INHALER INHALATION SCH ×2 (09:31→21:04)
[2018-04-27] MEDS: PSEUDOEPHEDRINE 30 MG TAB PO PRN (09:38)
[2018-04-27] MEDS: QUEtiapine 100 MG TAB PO SCH ×2 (16:17→20:23)
--- NOTE | 2018-04-27 17:16 | P.PN ---
Progress Note - Text Progress Note Date: 04/27/18 Patient was seen today. He was angry about being sent from one hospital to another hospital. When asked if he takes his medications he talked about recieving haldol injection in one arm and blood clot injections. 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 When asked if is taking his medications in the pill form, he stated he doesnt take any pills. He is also frustrated about going to court for treatment. Per medical records he is voluntary admission. He how ever was sent her on a petition and clinical cert from [facility] When asked where he was living prior to his current hospitalization he stated another hospital. When asked where was he living prior to his recent hospitalizations he stated he doesnt remember. Per staff patient eats in his room and doesnt like to eat with others. He also comes to the nurses station frequently asking for tooth brush, mouthwash etc. Per staff he stores tooth brushes and mouth washes inside his room. No major behavioral problems reported. He has not been violent or assaultive on the unit. He is 62 year old male. Appeared his stated age in fair grooming and hygiene. He walks with a stooped posture. His speech is hard to understand due to him being edentulous. He maintains poor eye contact., No abnormal movements noted. He is angry and frustrated, his affect is flat. Insight and judgment chronically limited due to intellectual disability. Continue current medications Monitor for symptoms Social work to discuss with guardian about his discharge plans.
[2018-04-27] MEDS: ATORVASTATIN 10 MG TAB PO SCH (20:22)
[2018-04-28] MEDS: ACETAMINOPHEN TAB 325 MG TAB PO PRN ×3 (07:51→20:33)
[2018-04-28] MEDS: BENZOCAINE/MENTHOL LOZENG 1 EACH LOZENGE MUCOUS MEM PRN ×2 (07:53→16:02)
[2018-04-28] MEDS: MEMANTINE 10 MG TAB PO SCH ×2 (08:06→20:28)
[2018-04-28] MEDS: ASPIRIN 81 MG PO SCH (08:06)
[2018-04-28] MEDS: DONEPEZIL 10 MG TAB PO SCH (08:06)
[2018-04-28] MEDS: clonazePAM 0.5 MG TAB PO SCH ×2 (08:06→20:28)
[2018-04-28] MEDS: DOCUSATE 100 MG CAP PO SCH (08:06)
[2018-04-28] MEDS: APIXABAN 5 MG TAB PO SCH ×2 (08:06→20:27)
[2018-04-28] MEDS: LACOSAMIDE 50 MG TABLET PO SCH ×2 (08:07→20:28)
[2018-04-28] MEDS: PANTOPRAZOLE 40 MG TABLET PO SCH (08:07)
[2018-04-28] MEDS: levETIRAcetam 500 MG TAB PO SCH ×2 (08:07→20:27)
[2018-04-28] MEDS: SYMBICORT 80-4.5 MCG INHALER INHALATION SCH ×2 (10:05→20:24)
[2018-04-28] MEDS: VALPROIC ACID ORAL SOLN 250 MG/5 ML CUP PO SCH ×2 (11:16→20:28)
[2018-04-28] MEDS: TIOTROPIUM 18 MCG/PUFF INHALER INHALATION SCH (13:11)
[2018-04-28] MEDS: QUEtiapine 100 MG TAB PO SCH ×2 (16:02→20:28)
[2018-04-28] MEDS: PSEUDOEPHEDRINE 30 MG TAB PO PRN (16:35)
--- NOTE | 2018-04-28 18:39 | P.PN ---
Progress Note - Text Progress Note Date: 04/28/18 Patient was seen talking to himself. He asked if he could get monthly haldol injections and vitamin 12 injections. He says he forgets to take his pills and wants monthly injections. No anger or agitation reported. He stays isolated. He is 62 year old male. Appeared his stated age in fair grooming and hygiene. He walks with a stooped posture. His speech is hard to understand due to him being edentulous. He maintains poor eye contact., No abnormal movements noted. He reports doing Ok, his affect is flat. Insight and judgment chronically limited due to intellectual disability. Continue current medications Monitor for symptoms Social work to discuss with guardian about his discharge plans.
[2018-04-28] MEDS: ATORVASTATIN 10 MG TAB PO SCH (20:27)
[2018-04-29] MEDS: ACETAMINOPHEN TAB 325 MG TAB PO PRN ×3 (04:12→20:41)
[2018-04-29] MEDS: BENZOCAINE/MENTHOL LOZENG 1 EACH LOZENGE MUCOUS MEM PRN ×3 (04:13→20:42)
[2018-04-29] MEDS: LACOSAMIDE 50 MG TABLET PO SCH ×2 (09:29→20:12)
[2018-04-29] MEDS: levETIRAcetam 500 MG TAB PO SCH ×2 (09:29→20:13)
[2018-04-29] MEDS: VALPROIC ACID ORAL SOLN 250 MG/5 ML CUP PO SCH ×2 (09:29→20:13)
[2018-04-29] MEDS: clonazePAM 0.5 MG TAB PO SCH ×2 (09:29→20:12)
[2018-04-29] MEDS: DOCUSATE 100 MG CAP PO SCH (09:30)
[2018-04-29] MEDS: ASPIRIN 81 MG PO SCH (09:30)
[2018-04-29] MEDS: PANTOPRAZOLE 40 MG TABLET PO SCH (09:30)
[2018-04-29] MEDS: MEMANTINE 10 MG TAB PO SCH ×2 (09:30→20:13)
[2018-04-29] MEDS: APIXABAN 5 MG TAB PO SCH ×2 (09:30→20:13)
[2018-04-29] MEDS: DONEPEZIL 10 MG TAB PO SCH (09:30)
[2018-04-29] MEDS: TIOTROPIUM 18 MCG/PUFF INHALER INHALATION SCH (09:46)
[2018-04-29] MEDS: SYMBICORT 80-4.5 MCG INHALER INHALATION SCH ×2 (09:46→19:19)
[2018-04-29] MEDS: PSEUDOEPHEDRINE 30 MG TAB PO PRN (10:16)
[2018-04-29 10:18] LABS: Valproic Acid (Depakene) 63.3 ug/mL
--- NOTE | 2018-04-29 10:50 | P.PN ---
Progress Note - Text Interval history: The patient's presents to my office and knocks on the door. He comes in and is seated at the table for the interview. He reports his mood is "alright". He asks to be placed somewhere on [facility] because he knows that area. He has been compliant with his medication. Lab results are back his Depakote level was 63.3 liver enzymes were within normal limits. Staff report that the patient has not demonstrated any behavioral issues other than trying to elvira items such as spoons and straws. He endorses no thoughts of self-harm or harm to others. He has no questions regarding his medications. Mental status exam: The patient is alert he is cooperative and pleasant. He discusses a variety of topics including vintage automobiles. He expresses his opinion regarding his placement needs but is aware that his guardian is making the decisions. He reports no suicidal or homicidal ideation. He is reporting no auditory or visual hallucinations. He does have a chronic impediment of speech with a history of intellectual disability. He demonstrated no abnormal involuntary movements. He demonstrated a range of affect he demonstrated no verbal or physical aggressiveness. He continues to ambulate without ataxia. Plan: The patient will continue on his current psychotropic medication. Social work has contacted the guardian's office again. They remain committed to the idea of the patient going to an extended care facility. He has been denied by the facilities we have applied to so far apparently regarding office suggested another one which we have applied to. Vital signs reviewed. We will continue to monitor him for safety.
[2018-04-29] MEDS: QUEtiapine 100 MG TAB PO SCH ×2 (16:19→20:13)
[2018-04-29] MEDS: ATORVASTATIN 10 MG TAB PO SCH (20:13)
[2018-04-29] MEDS: diphenhydrAMINE 25 MG CAP PO PRN (20:13)
[2018-04-29] MEDS: FAMOTIDINE 20 MG TAB PO SCH (20:15)
[2018-04-30] MEDS: ACETAMINOPHEN TAB 325 MG TAB PO PRN ×2 (02:27→21:56)
[2018-04-30] MEDS: LORazepam 1 MG TAB PO PRN (02:27)
[2018-04-30] MEDS: PSEUDOEPHEDRINE 30 MG TAB PO PRN (04:20)
[2018-04-30] MEDS: BENZOCAINE/MENTHOL LOZENG 1 EACH LOZENGE MUCOUS MEM PRN ×2 (04:20→21:58)
[2018-04-30] MEDS: CALAMINE/ZINC OXIDE LOTION 177 ML BTL TOPICAL PRN (04:22)
[2018-04-30] MEDS: SYMBICORT 80-4.5 MCG INHALER INHALATION SCH ×2 (08:46→22:30)
[2018-04-30] MEDS: TIOTROPIUM 18 MCG/PUFF INHALER INHALATION SCH (08:46)
[2018-04-30] MEDS: ASPIRIN 81 MG PO SCH (09:20)
[2018-04-30] MEDS: APIXABAN 5 MG TAB PO SCH ×2 (09:20→21:17)
[2018-04-30] MEDS: DOCUSATE 100 MG CAP PO SCH (09:20)
[2018-04-30] MEDS: MEMANTINE 10 MG TAB PO SCH ×2 (09:20→21:16)
[2018-04-30] MEDS: DONEPEZIL 10 MG TAB PO SCH (09:20)
[2018-04-30] MEDS: clonazePAM 0.5 MG TAB PO SCH ×2 (09:20→21:17)
[2018-04-30] MEDS: FAMOTIDINE 20 MG TAB PO SCH ×2 (09:23→21:17)
[2018-04-30] MEDS: levETIRAcetam 500 MG TAB PO SCH ×2 (09:23→21:16)
[2018-04-30] MEDS: LACOSAMIDE 50 MG TABLET PO SCH ×2 (09:23→21:17)
[2018-04-30] MEDS: VALPROIC ACID ORAL SOLN 250 MG/5 ML CUP PO SCH ×2 (09:24→21:17)
[2018-04-30] MEDS: PANTOPRAZOLE 40 MG TABLET PO SCH (09:24)
[2018-04-30] MEDS ORDERED: QUEtiapine 100 MG TAB ONE (17:00)
[2018-04-30] MEDS: QUEtiapine 100 MG TAB PO SCH ×2 (18:00→21:16)
[2018-04-30] MEDS: ATORVASTATIN 10 MG TAB PO SCH (21:17)
[2018-05-01] MEDS: ACETAMINOPHEN TAB 325 MG TAB PO PRN ×2 (05:45→15:21)
[2018-05-01] MEDS: BENZOCAINE/MENTHOL LOZENG 1 EACH LOZENGE MUCOUS MEM PRN ×2 (05:46→15:22)
[2018-05-01] MEDS: LACOSAMIDE 50 MG TABLET PO SCH ×2 (09:18→20:50)
[2018-05-01] MEDS: APIXABAN 5 MG TAB PO SCH ×2 (09:18→20:50)
[2018-05-01] MEDS: levETIRAcetam 500 MG TAB PO SCH ×2 (09:18→20:50)
[2018-05-01] MEDS: ASPIRIN 81 MG PO SCH (09:18)
[2018-05-01] MEDS: PANTOPRAZOLE 40 MG TABLET PO SCH (09:18)
[2018-05-01] MEDS: FAMOTIDINE 20 MG TAB PO SCH ×2 (09:18→20:50)
[2018-05-01] MEDS: DOCUSATE 100 MG CAP PO SCH (09:18)
[2018-05-01] MEDS: MEMANTINE 10 MG TAB PO SCH ×2 (09:18→20:50)
[2018-05-01] MEDS: DONEPEZIL 10 MG TAB PO SCH (09:18)
[2018-05-01] MEDS: clonazePAM 0.5 MG TAB PO SCH ×2 (09:19→20:50)
[2018-05-01] MEDS: VALPROIC ACID ORAL SOLN 250 MG/5 ML CUP PO SCH ×2 (09:22→20:49)
[2018-05-01] MEDS: PSEUDOEPHEDRINE 30 MG TAB PO PRN (09:41)
[2018-05-01] MEDS: HALOPERIDOL LACTATE 5 MG/ML 1 ML VIAL IM PRN (10:01)
[2018-05-01] MEDS: TIOTROPIUM 18 MCG/PUFF INHALER INHALATION SCH (10:09)
[2018-05-01] MEDS: SYMBICORT 80-4.5 MCG INHALER INHALATION SCH ×3 (10:09→21:43)
--- NOTE | 2018-05-01 14:49 | P.PN ---
Progress Note - Text Progress Note Date: 05/01/18 Interval history: The patient posed me several times this morning requesting a "shot" I had difficulty understanding his concerns but he became progressively more agitated. Nursing administered 5 mg of Haldol IM at 10:01 this morning for agitation and verbally aggressive behavior. He has not attended therapeutic groups or activities and slept 6 hours last night. He has demonstrated no assaultive behavior over the last 24 hours. Mental status exam: He presented as a casually groomed and dressed 62-year-old male who made eye contact. He had a stooped posture. He had a distressed facial expression. He was alert to person only. He was restless and agitated. His speech was dysarthric spontaneous and rapid. His affect was irritable and at times inappropriate. He did not express clear ideas reference or paranoid ideation. His thinking was concrete and not coherent and organized. He did not appear to be responding to internal stimuli. Plan: Continue inpatient hospitalization. Continue safety precautions. horticulture worker is coordinating aftercare services with his guardian. Continue with current psychotropic medications-Klonopin point 5 AM and 1.5 at bedtime, Benadryl 25 mg 3 times a day, Aricept 10 mg daily, Haldol 5 mg IM every 6 hours when necessary for agitation, Namenda 10 mg by mouth twice a day, Seroquel 100 mg daily and 300 mg at bedtime and valproic acid 500 mg daily and 1000 mg at bedtime. Evaluate clinical status response to treatment on a daily basis.
[2018-05-01] MEDS: QUEtiapine 100 MG TAB PO SCH ×2 (16:42→20:50)
[2018-05-01] MEDS: CALAMINE/ZINC OXIDE LOTION 177 ML BTL TOPICAL PRN (16:48)
[2018-05-01] MEDS: diphenhydrAMINE 25 MG CAP PO PRN (17:08)
[2018-05-01] MEDS: ATORVASTATIN 10 MG TAB PO SCH (20:50)
[2018-05-02] MEDS: ACETAMINOPHEN TAB 325 MG TAB PO PRN ×3 (06:29→19:11)
[2018-05-02] MEDS: FAMOTIDINE 20 MG TAB PO SCH ×2 (08:35→20:45)
[2018-05-02] MEDS: clonazePAM 0.5 MG TAB PO SCH ×2 (08:35→20:46)
[2018-05-02] MEDS: DONEPEZIL 10 MG TAB PO SCH (08:35)
[2018-05-02] MEDS: DOCUSATE 100 MG CAP PO SCH (08:35)
[2018-05-02] MEDS: PANTOPRAZOLE 40 MG TABLET PO SCH (08:35)
[2018-05-02] MEDS: APIXABAN 5 MG TAB PO SCH ×2 (08:35→20:45)
[2018-05-02] MEDS: ASPIRIN 81 MG PO SCH (08:35)
[2018-05-02] MEDS: levETIRAcetam 500 MG TAB PO SCH ×2 (08:35→20:45)
[2018-05-02] MEDS: LACOSAMIDE 50 MG TABLET PO SCH ×2 (08:35→20:46)
[2018-05-02] MEDS: VALPROIC ACID ORAL SOLN 250 MG/5 ML CUP PO SCH ×2 (08:36→20:47)
[2018-05-02] MEDS: MEMANTINE 10 MG TAB PO SCH ×2 (08:36→20:46)
[2018-05-02] MEDS: diphenhydrAMINE 25 MG CAP PO PRN (09:13)
[2018-05-02] MEDS: SYMBICORT 80-4.5 MCG INHALER INHALATION SCH ×2 (09:18→19:52)
[2018-05-02] MEDS: TIOTROPIUM 18 MCG/PUFF INHALER INHALATION SCH (09:18)
[2018-05-02] MEDS: QUEtiapine 100 MG TAB PO SCH ×2 (16:15→20:45)
[2018-05-02] MEDS: BENZOCAINE/MENTHOL LOZENG 1 EACH LOZENGE MUCOUS MEM PRN ×2 (16:15→16:18)
--- NOTE | 2018-05-02 16:26 | P.PN ---
Progress Note - Text Progress Note Date: 05/02/18 Interval history: I reviewed the medical record, attempted to interview the patient and discuss his treatment and treatment plan during team meeting. He was intermittently restless on the unit but did not require when necessary medications today. He is easily directable. He does not attend therapeutic groups or activities. His demonstrated no assaultive behavior over the last 24 hours. Mental status exam. He presented as a casually groomed and dressed 62-year-old male who made eye contact. He had a stooped posture. He had a blunted facial expression. He was alert to person only. He intermittently paced unit but displayed no agitation or aggression. His speech was dysarthric , spontaneous and at times rapid. His affect was blunted, stable and appropriate. He did not express clear ideas reference or paranoid ideation. His thinking was concrete and at times not logical coherent. He did not appear to responding to internal stimuli. Plan: Continue inpatient hospitalization. Safety precautions. poultry husbandry worker is coordinate aftercare with his public guardian. Continue current psychotropic medications-Klonopin 5 mg a.m. and 1.5 mg at bedtime, Benadryl 25 mg 3 times a day, Aricept 10 mg daily, Haldol 5 mg IM every 6 hours when necessary for agitation, Namenda 10 mg by mouth twice a day, Seroquel 100 mg daily and 300 mg at bedtime and valproic acid 500 mg daily and 1000 mg at bedtime. Consider daily dosing of Haldol in addition to the current dose of Seroquel. Evaluate clinical status response to treatment on a daily basis.
[2018-05-02] MEDS: ATORVASTATIN 10 MG TAB PO SCH (20:46)
[2018-05-03] MEDS: PANTOPRAZOLE 40 MG TABLET PO SCH (09:03)
[2018-05-03] MEDS: levETIRAcetam 500 MG TAB PO SCH ×2 (09:03→20:18)
[2018-05-03] MEDS: LACOSAMIDE 50 MG TABLET PO SCH ×2 (09:03→20:18)
[2018-05-03] MEDS: MEMANTINE 10 MG TAB PO SCH ×2 (09:03→20:19)
[2018-05-03] MEDS: clonazePAM 0.5 MG TAB PO SCH ×2 (09:03→20:19)
[2018-05-03] MEDS: APIXABAN 5 MG TAB PO SCH ×2 (09:03→20:18)
[2018-05-03] MEDS: DOCUSATE 100 MG CAP PO SCH (09:03)
[2018-05-03] MEDS: FAMOTIDINE 20 MG TAB PO SCH ×2 (09:04→20:19)
[2018-05-03] MEDS: ASPIRIN 81 MG PO SCH (09:04)
[2018-05-03] MEDS: DONEPEZIL 10 MG TAB PO SCH (09:04)
[2018-05-03] MEDS: VALPROIC ACID ORAL SOLN 250 MG/5 ML CUP PO SCH ×2 (09:04→20:20)
[2018-05-03] MEDS: BENZOCAINE/MENTHOL LOZENG 1 EACH LOZENGE MUCOUS MEM PRN (09:05)
[2018-05-03] MEDS: SYMBICORT 80-4.5 MCG INHALER INHALATION SCH ×2 (09:40→21:59)
[2018-05-03] MEDS: TIOTROPIUM 18 MCG/PUFF INHALER INHALATION SCH (09:40)
--- NOTE | 2018-05-03 16:36 | P.PN ---
Progress Note - Text Progress Note Date: 05/03/18 Interval history: I reviewed the medical record, interviewed the patient and discuss his treatment and treatment plan during team meeting. He was not restless, agitated or irritable today. He did not require administration of when necessary medications. He is not impulsive or intrusive and was easily directable. He does not attend therapeutic groups and activities. He spends most of his time either in his room or pacing the hallway. He is not demonstrated assaultive behavior over the last 24 hours. Mental status exam: He presented as a somewhat disheveled appearing 62-year-old male who made eye contact. He walked with a stooped posture. He had a blunted facial expression. He is alert to person only. Speech was dysarthric , spontaneous and difficult to understand. His affect was blunted but stable and appropriate. He did not express clear ideas reference or paranoid ideation. His thinking was concrete. He does not appear to responding to internal stimuli. Plan: Continue inpatient hospitalization. Safety precautions. social worker psychiatric to inform the guardian that the patient is appropriate for discharge and we did encourage him to identify a residence. Continue current psychotropic medications-Klonopin 5 mg a.m. and 1.5 mg at bedtime, Benadryl 25 mg 3 times a day, Aricept 10 mg daily, Haldol 5 mg IM every 6 hours when necessary for agitation, Namenda 10 mg by mouth twice a day, Seroquel 100 mg daily and 300 mg at bedtime and valproic acid 500 mg daily and 1000 mg at bedtime. If he displays agitation continue attending [facility] in addition to the current dose of Seroquel. Evaluate clinical status response to treatment on a daily basis.
[2018-05-03] MEDS: QUEtiapine 100 MG TAB PO SCH ×2 (16:49→20:19)
[2018-05-03] MEDS: ATORVASTATIN 10 MG TAB PO SCH (20:19)
[2018-05-04] MEDS: VALPROIC ACID ORAL SOLN 250 MG/5 ML CUP PO SCH ×2 (08:14→20:02)
[2018-05-04] MEDS: APIXABAN 5 MG TAB PO SCH ×2 (08:14→20:05)
[2018-05-04] MEDS: ASPIRIN 81 MG PO SCH (08:15)
[2018-05-04] MEDS: diphenhydrAMINE 25 MG CAP PO PRN (08:15)
[2018-05-04] MEDS: levETIRAcetam 500 MG TAB PO SCH ×2 (08:15→20:02)
[2018-05-04] MEDS: DONEPEZIL 10 MG TAB PO SCH (08:15)
[2018-05-04] MEDS: LACOSAMIDE 50 MG TABLET PO SCH ×2 (08:15→20:05)
[2018-05-04] MEDS: DOCUSATE 100 MG CAP PO SCH (08:16)
[2018-05-04] MEDS: clonazePAM 0.5 MG TAB PO SCH ×3 (08:16→20:03)
[2018-05-04] MEDS: PANTOPRAZOLE 40 MG TABLET PO SCH (08:16)
[2018-05-04] MEDS: FAMOTIDINE 20 MG TAB PO SCH ×2 (08:16→20:02)
[2018-05-04] MEDS: MEMANTINE 10 MG TAB PO SCH ×2 (08:16→20:05)
[2018-05-04] MEDS: SYMBICORT 80-4.5 MCG INHALER INHALATION SCH ×2 (10:00→20:51)
[2018-05-04] MEDS: TIOTROPIUM 18 MCG/PUFF INHALER INHALATION SCH (10:00)
[2018-05-04] MEDS: QUEtiapine 100 MG TAB PO SCH ×2 (17:59→20:05)
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
[2018-05-04] MEDS: ATORVASTATIN 10 MG TAB PO SCH (20:05)
[2018-05-05] MEDS: LORazepam 1 MG TAB PO PRN ×2 (00:49→23:18)
[2018-05-05] MEDS: ACETAMINOPHEN TAB 325 MG TAB PO PRN ×2 (04:07→23:17)
[2018-05-05] MEDS: VALPROIC ACID ORAL SOLN 250 MG/5 ML CUP PO SCH ×2 (08:29→20:22)
[2018-05-05] MEDS: DONEPEZIL 10 MG TAB PO SCH (08:30)
[2018-05-05] MEDS: DOCUSATE 100 MG CAP PO SCH (08:30)
[2018-05-05] MEDS: FAMOTIDINE 20 MG TAB PO SCH ×2 (08:30→20:22)
[2018-05-05] MEDS: APIXABAN 5 MG TAB PO SCH ×2 (08:30→20:22)
[2018-05-05] MEDS: MEMANTINE 10 MG TAB PO SCH ×2 (08:30→20:23)
[2018-05-05] MEDS: LACOSAMIDE 50 MG TABLET PO SCH ×2 (08:30→20:23)
[2018-05-05] MEDS: PANTOPRAZOLE 40 MG TABLET PO SCH (08:30)
[2018-05-05] MEDS: levETIRAcetam 500 MG TAB PO SCH ×2 (08:30→20:23)
[2018-05-05] MEDS: ASPIRIN 81 MG PO SCH (08:30)
[2018-05-05] MEDS: SYMBICORT 80-4.5 MCG INHALER INHALATION SCH ×2 (08:52→21:03)
[2018-05-05] MEDS: TIOTROPIUM 18 MCG/PUFF INHALER INHALATION SCH (08:52)
[2018-05-05] MEDS: CALAMINE/ZINC OXIDE LOTION 177 ML BTL TOPICAL PRN (09:11)
[2018-05-05] MEDS: QUEtiapine 100 MG TAB PO SCH ×2 (16:47→20:23)
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
[2018-05-05] MEDS: ATORVASTATIN 10 MG TAB PO SCH (20:22)
[2018-05-05] MEDS: clonazePAM 0.5 MG TAB PO SCH (20:24)
[2018-05-06] MEDS: LORazepam 1 MG TAB PO PRN (05:15)
[2018-05-06] MEDS: ACETAMINOPHEN TAB 325 MG TAB PO PRN ×2 (05:15→17:38)
[2018-05-06] MEDS: SYMBICORT 80-4.5 MCG INHALER INHALATION SCH ×2 (08:55→20:58)
[2018-05-06] MEDS: TIOTROPIUM 18 MCG/PUFF INHALER INHALATION SCH (08:55)
[2018-05-06] MEDS: APIXABAN 5 MG TAB PO SCH ×2 (09:01→21:07)
[2018-05-06] MEDS: VALPROIC ACID ORAL SOLN 250 MG/5 ML CUP PO SCH ×2 (09:06→21:08)
[2018-05-06] MEDS: levETIRAcetam 500 MG TAB PO SCH ×2 (09:06→21:09)
[2018-05-06] MEDS: DOCUSATE 100 MG CAP PO SCH (09:06)
[2018-05-06] MEDS: MEMANTINE 10 MG TAB PO SCH ×2 (09:06→21:07)
[2018-05-06] MEDS: ASPIRIN 81 MG PO SCH (09:07)
[2018-05-06] MEDS: LACOSAMIDE 50 MG TABLET PO SCH ×2 (09:07→21:07)
[2018-05-06] MEDS: FAMOTIDINE 20 MG TAB PO SCH ×2 (09:07→21:07)
[2018-05-06] MEDS: DONEPEZIL 10 MG TAB PO SCH (09:08)
[2018-05-06] MEDS: clonazePAM 0.5 MG TAB PO SCH ×2 (09:08→21:08)
[2018-05-06] MEDS: PANTOPRAZOLE 40 MG TABLET PO SCH (09:08)
--- NOTE | 2018-05-06 11:32 | P.PN ---
Progress Note - Text Interval history: The patient's approaches me at my office. He participates in an interview. He states his mood is "alright". He indicates he is eating and sleeping. Staff report no verbal outbursts or any physical aggressiveness. The treatment team agrees that he has clinically stabilized after the last titration of Depakote. The patient does ask questions regarding his placement options. Social work continues to work with his guardian's office in submitting applications to other potential excepting facilities. Mental status exam: The patient is alert he is cooperative and pleasant. He is dressed in the same clothing. Eye contact is appropriate. He has a chronic intellectual disability and speech impediment. He is reporting no thoughts of harming himself or others. He is endorsing no hallucinations. He demonstrates no verbal or physical aggressiveness. He demonstrates use of humor and laughter during the session appropriately. He is not oriented to day of the week but is able to name the correct month and year. Insight and judgment chronically limited but they have improved during the hospitalization. Plan: The patient will continue on his current medication. We are awaiting placement for him. He is appropriate for transfer once an acceptable bed is found. Vital signs reviewed.
[2018-05-06] MEDS: QUEtiapine 100 MG TAB PO SCH ×2 (17:38→21:07)
[2018-05-06] MEDS: ATORVASTATIN 10 MG TAB PO SCH (21:07)
[2018-05-06] MEDS: diphenhydrAMINE 25 MG CAP PO PRN (21:07)
[2018-05-07] MEDS: ACETAMINOPHEN TAB 325 MG TAB PO PRN (00:48)
[2018-05-07] MEDS: DOCUSATE 100 MG CAP PO SCH (09:25)
[2018-05-07] MEDS: LACOSAMIDE 50 MG TABLET PO SCH ×2 (09:25→20:42)
[2018-05-07] MEDS: levETIRAcetam 500 MG TAB PO SCH ×2 (09:25→20:41)
[2018-05-07] MEDS: ASPIRIN 81 MG PO SCH (09:25)
[2018-05-07] MEDS: FAMOTIDINE 20 MG TAB PO SCH ×2 (09:25→20:41)
[2018-05-07] MEDS: DONEPEZIL 10 MG TAB PO SCH (09:26)
[2018-05-07] MEDS: PANTOPRAZOLE 40 MG TABLET PO SCH (09:26)
[2018-05-07] MEDS: APIXABAN 5 MG TAB PO SCH ×2 (09:26→20:41)
[2018-05-07] MEDS: MEMANTINE 10 MG TAB PO SCH ×2 (09:26→20:41)
[2018-05-07] MEDS: clonazePAM 0.5 MG TAB PO SCH ×2 (09:26→20:41)
[2018-05-07] MEDS: VALPROIC ACID ORAL SOLN 250 MG/5 ML CUP PO SCH ×2 (09:27→20:42)
--- NOTE | 2018-05-07 11:23 | P.PN ---
Progress Note - Text Interval history: The patient's found in his room he was observed ambulating in the hallway throughout the morning. He reports his mood is all right. He states he would like to be discharged to a facility on [facility]. He reports having no physical pain or dizziness. He reports appetite is stable. Staff report that the patient has been appropriate in terms of behavior and has demonstrated use of humor. Social work staff indicate that the patient was refused by one of the extended care facility suggested by the guardian we are awaiting input from another. They will contact the guardian for suggestions for other facilities as well. Mental status exam: The patient is alert he is lying in bed he makes no eye contact but does provide verbal responses to questions asked. He is dressed in his own clothing. He is unshaven. Hygiene is adequate. He reports his mood is all right. Affect is constricted. He is reporting no suicidal or homicidal thoughts. He is endorsing no auditory or visual hallucinations. He does not appear hypomanic or manic. Intellectual ability is chronically limited. He has a chronic impediment of speech. Insight and judgment limited. He demonstrates no verbal or physical aggressiveness. He demonstrates no abnormal involuntary movements. Plan: The patient's is clinically stabilizing. We continue to search for appropriate placement for him as directed by his guardian. Vital signs reviewed. Continue to monitor him for safety.
[2018-05-07] MEDS: QUEtiapine 100 MG TAB PO SCH ×2 (17:06→20:41)
[2018-05-07] MEDS: ATORVASTATIN 10 MG TAB PO SCH (20:41)
[2018-05-07] MEDS: SYMBICORT 80-4.5 MCG INHALER INHALATION SCH (20:43)
[2018-05-07] MEDS: TIOTROPIUM 18 MCG/PUFF INHALER INHALATION SCH (20:44)
--- NOTE | 2018-05-07 22:16 | PN ---
PROGRESS NOTE I came to see the patient to check on his legs. I was accompanied by the nurse. I did request the patient to take off his pants, which could be only rolled up to barely above his knees. Patient refuses to do the same. I did explain to him that I need to examine his thigh area and also his buttock area. Patient stated that he does not wish to see me right now, that I am not a doctor, and started shouting. I left the room. I told the nurse to please call me back when the patient is ready for the examination. Thank you, Dr. Olson. MMROSIL / KEVYN: [id number] /
[2018-05-08] MEDS ORDERED: LORazepam 2 MG/ML INJ ONE (01:58)
[2018-05-08] MEDS ORDERED: HALOPERIDOL LACTATE 5 MG/ML 1 ML VIAL ONE (01:58)
[2018-05-08] MEDS: SYMBICORT 80-4.5 MCG INHALER INHALATION SCH ×3 (05:21→20:56)
[2018-05-08] MEDS: ACETAMINOPHEN TAB 325 MG TAB PO PRN ×2 (06:26→16:59)
[2018-05-08] MEDS: PANTOPRAZOLE 40 MG TABLET PO SCH (08:32)
[2018-05-08] MEDS: DOCUSATE 100 MG CAP PO SCH (08:32)
[2018-05-08] MEDS: DONEPEZIL 10 MG TAB PO SCH (08:32)
[2018-05-08] MEDS: APIXABAN 5 MG TAB PO SCH ×2 (08:32→20:59)
[2018-05-08] MEDS: LACOSAMIDE 50 MG TABLET PO SCH ×2 (08:33→20:59)
[2018-05-08] MEDS: clonazePAM 0.5 MG TAB PO SCH ×2 (08:33→21:06)
[2018-05-08] MEDS: FAMOTIDINE 20 MG TAB PO SCH ×2 (08:33→20:59)
[2018-05-08] MEDS: MEMANTINE 10 MG TAB PO SCH ×2 (08:33→20:59)
[2018-05-08] MEDS: levETIRAcetam 500 MG TAB PO SCH ×2 (08:33→20:59)
[2018-05-08] MEDS: ASPIRIN 81 MG PO SCH (08:33)
[2018-05-08] MEDS: VALPROIC ACID ORAL SOLN 250 MG/5 ML CUP PO SCH ×2 (08:34→21:00)
[2018-05-08] MEDS: CALAMINE/ZINC OXIDE LOTION 177 ML BTL TOPICAL PRN (09:05)
[2018-05-08] MEDS: TIOTROPIUM 18 MCG/PUFF INHALER INHALATION SCH (09:37)
--- NOTE | 2018-05-08 10:00 | P.PN ---
Progress Note - Text Interval history: The patient is found at the front worker he follows me to an interview room. The patient is primarily focused on discharge planning. He indicates that he is looking forward to being discharged from the mental health unit. He has several questions about his next placement that we are unable to answer at this time. I was informed that represented is from facilities may be speaking with him in the near future to interview him. He was informed of that possibility. He has been compliant with medication he has no questions or concerns regarding his psychotropic medication. Staff report no aggressive behavior. Mental status exam: The patient is alert he seated calmly in the chair. He is dressed in the same clothing. Eye contact is appropriate. He speaks in a calm tone and does not become loud during the interaction. He demonstrates no verbal or physical aggressiveness. He is reporting no thoughts of self-harm or harm to others he endorses no hallucinations. he reports feeling safe in the hospital. He is known to have a chronic intellectual disability and impediment of speech. Insight and judgment chronically limited. Plan: We will continue the patient's medications as written. We are awaiting acceptable placement. Vital signs reviewed. We will continue to monitor him for safety.
[2018-05-08] MEDS: QUEtiapine 100 MG TAB PO SCH ×2 (17:42→20:59)
[2018-05-08] MEDS: ATORVASTATIN 10 MG TAB PO SCH (20:59)
[2018-05-09] MEDS: ACETAMINOPHEN TAB 325 MG TAB PO PRN ×2 (05:53→14:03)
[2018-05-09] MEDS: VALPROIC ACID ORAL SOLN 250 MG/5 ML CUP PO SCH ×2 (08:30→21:15)
[2018-05-09] MEDS: clonazePAM 0.5 MG TAB PO SCH ×2 (08:31→21:19)
[2018-05-09] MEDS: levETIRAcetam 500 MG TAB PO SCH ×2 (08:31→21:16)
[2018-05-09] MEDS: DOCUSATE 100 MG CAP PO SCH (08:31)
[2018-05-09] MEDS: FAMOTIDINE 20 MG TAB PO SCH ×2 (08:32→21:16)
[2018-05-09] MEDS: APIXABAN 5 MG TAB PO SCH ×2 (08:32→21:16)
[2018-05-09] MEDS: LACOSAMIDE 50 MG TABLET PO SCH ×2 (08:32→21:17)
[2018-05-09] MEDS: ASPIRIN 81 MG PO SCH (08:32)
[2018-05-09] MEDS: DONEPEZIL 10 MG TAB PO SCH (08:32)
[2018-05-09] MEDS: PANTOPRAZOLE 40 MG TABLET PO SCH (08:32)
[2018-05-09] MEDS: MEMANTINE 10 MG TAB PO SCH ×2 (08:32→21:17)
[2018-05-09] MEDS: SYMBICORT 80-4.5 MCG INHALER INHALATION SCH ×2 (09:00→20:37)
[2018-05-09] MEDS: TIOTROPIUM 18 MCG/PUFF INHALER INHALATION SCH (09:00)
--- NOTE | 2018-05-09 09:43 | P.PN ---
Progress Note - Text Interval history: The patient is found the hallway he follows me to an interview room. He reports his mood is "alright". He did meet with an individual to perform his OBRA screening. He continues to make demands of having a private room the facility being located on [facility] and not having to participate in a program during the day. No reports of any agitated behavior. The patient is sleeping appropriately in the evening appetite is stable Mental status exam: The patient is a disheveled male appearing his stated age. He is dressed in the same clothing. Hygiene is adequate as he is showering. The patient reports his mood is stable. He is endorsing no thoughts of self-harm or harm to others. He is demonstrating no verbal or physical aggressiveness. Insight and judgment chronically limited he does have a chronic history of intellectual disability with chronic impediment speech. Affect is initially constricted he demonstrates appropriate smiling with use of humor. He does have some spontaneous speech. He maintains an appropriate tone of voice and does not become loud. No observed abnormal involuntary movements. Plan: The patient will continue on his current psychotropic medication. Vital signs reviewed they are stable. Continues to ambulate without ataxia. He complains of no dizziness or pain. He is clinically stabilizing we are awaiting placement and social work remains in contact with his guardian.
[2018-05-09] MEDS: QUEtiapine 100 MG TAB PO SCH ×2 (16:10→21:17)
[2018-05-09] MEDS: ATORVASTATIN 10 MG TAB PO SCH (21:16)
[2018-05-10] MEDS: TIOTROPIUM 18 MCG/PUFF INHALER INHALATION SCH (08:48)
[2018-05-10] MEDS: SYMBICORT 80-4.5 MCG INHALER INHALATION SCH ×2 (08:49→20:24)
[2018-05-10] MEDS: clonazePAM 0.5 MG TAB PO SCH ×2 (09:06→21:57)
[2018-05-10] MEDS: APIXABAN 5 MG TAB PO SCH ×2 (09:06→21:54)
[2018-05-10] MEDS: ASPIRIN 81 MG PO SCH (09:06)
[2018-05-10] MEDS: PANTOPRAZOLE 40 MG TABLET PO SCH (09:07)
[2018-05-10] MEDS: MEMANTINE 10 MG TAB PO SCH ×2 (09:07→21:54)
[2018-05-10] MEDS: FAMOTIDINE 20 MG TAB PO SCH ×2 (09:07→21:57)
[2018-05-10] MEDS: DONEPEZIL 10 MG TAB PO SCH (09:07)
[2018-05-10] MEDS: levETIRAcetam 500 MG TAB PO SCH ×2 (09:07→21:57)
[2018-05-10] MEDS: DOCUSATE 100 MG CAP PO SCH (09:09)
[2018-05-10] MEDS: LACOSAMIDE 50 MG TABLET PO SCH ×2 (09:09→21:57)
[2018-05-10] MEDS: VALPROIC ACID ORAL SOLN 250 MG/5 ML CUP PO SCH ×2 (09:10→21:57)
[2018-05-10] MEDS: ACETAMINOPHEN TAB 325 MG TAB PO PRN ×2 (10:47→15:46)
[2018-05-10] MEDS: QUEtiapine 100 MG TAB PO SCH ×2 (17:16→21:57)
[2018-05-10] MEDS: ATORVASTATIN 10 MG TAB PO SCH (21:57)
[2018-05-11] MEDS: SYMBICORT 80-4.5 MCG INHALER INHALATION SCH ×2 (09:28→18:11)
[2018-05-11] MEDS: MEMANTINE 10 MG TAB PO SCH ×2 (09:29→20:09)
[2018-05-11] MEDS: ASPIRIN 81 MG PO SCH (09:29)
[2018-05-11] MEDS: APIXABAN 5 MG TAB PO SCH ×2 (09:29→20:09)
[2018-05-11] MEDS: FAMOTIDINE 20 MG TAB PO SCH ×2 (09:29→20:09)
[2018-05-11] MEDS: clonazePAM 0.5 MG TAB PO SCH ×2 (09:29→20:10)
[2018-05-11] MEDS: DOCUSATE 100 MG CAP PO SCH (09:29)
[2018-05-11] MEDS: TIOTROPIUM 18 MCG/PUFF INHALER INHALATION SCH (09:29)
[2018-05-11] MEDS: DONEPEZIL 10 MG TAB PO SCH (09:30)
[2018-05-11] MEDS: VALPROIC ACID ORAL SOLN 250 MG/5 ML CUP PO SCH ×2 (09:30→20:08)
[2018-05-11] MEDS: PANTOPRAZOLE 40 MG TABLET PO SCH (09:31)
[2018-05-11] MEDS: levETIRAcetam 500 MG TAB PO SCH ×2 (09:31→20:09)
[2018-05-11] MEDS: LACOSAMIDE 50 MG TABLET PO SCH ×2 (09:33→20:09)
[2018-05-11] MEDS: ACETAMINOPHEN TAB 325 MG TAB PO PRN ×2 (09:36→13:16)
[2018-05-11] MEDS: LORazepam 1 MG TAB PO PRN (10:10)
[2018-05-11] MEDS: PSEUDOEPHEDRINE 30 MG TAB PO PRN (10:33)
--- NOTE | 2018-05-11 14:04 | P.PN ---
Progress Note - Text Progress Note Date: 05/11/18 Interval history: Patient seen in [facility] today. He reports that he is taking his medications. He relays that he slept about 9 hours last night. He does not seem to voice any adverse psychotropic medication side effects. Mental status exam: He describes that his mood is doing all right. He does laugh during the session. He does not show any agitation. He does not verbalize any thoughts of harm to self or others. Plan: Patient will be maintained on current psychotropic medication regimen. Continue to cover this patient through the weekend. Continue to monitor for any medication side effects and ongoing response to treatment.
[2018-05-11] MEDS: QUEtiapine 100 MG TAB PO SCH ×2 (16:09→20:09)
[2018-05-11] MEDS: ATORVASTATIN 10 MG TAB PO SCH (20:09)
[2018-05-12] MEDS: clonazePAM 0.5 MG TAB PO SCH ×2 (09:03→20:44)
[2018-05-12] MEDS: APIXABAN 5 MG TAB PO SCH ×2 (09:03→20:44)
[2018-05-12] MEDS: DOCUSATE 100 MG CAP PO SCH (09:03)
[2018-05-12] MEDS: DONEPEZIL 10 MG TAB PO SCH (09:03)
[2018-05-12] MEDS: FAMOTIDINE 20 MG TAB PO SCH ×2 (09:03→20:44)
[2018-05-12] MEDS: ASPIRIN 81 MG PO SCH (09:03)
[2018-05-12] MEDS: levETIRAcetam 500 MG TAB PO SCH ×2 (09:04→20:44)
[2018-05-12] MEDS: MEMANTINE 10 MG TAB PO SCH ×2 (09:04→20:44)
[2018-05-12] MEDS: LACOSAMIDE 50 MG TABLET PO SCH ×2 (09:04→20:44)
[2018-05-12] MEDS: VALPROIC ACID ORAL SOLN 250 MG/5 ML CUP PO SCH ×2 (09:04→20:43)
[2018-05-12] MEDS: PANTOPRAZOLE 40 MG TABLET PO SCH (09:04)
[2018-05-12] MEDS: ACETAMINOPHEN TAB 325 MG TAB PO PRN ×3 (09:05→22:35)
[2018-05-12] MEDS: SYMBICORT 80-4.5 MCG INHALER INHALATION SCH ×2 (09:34→17:42)
[2018-05-12] MEDS: TIOTROPIUM 18 MCG/PUFF INHALER INHALATION SCH (09:35)
--- NOTE | 2018-05-12 14:24 | P.PN ---
Progress Note - Text Progress Note Date: 05/12/18 Interval history: Patient relays that he slept pretty well last night. He seems to relay that he is eating good overall. He complains of a rash on his lower extremity and pulls up his pant leg to show the rash. He does not seem to voice any adverse psychotropic medication side effects. He makes reference about wanting a Haldol shot. Mental status exam: He is alert and cooperative with the interview. His mood is described as "alright." He does not voice any thoughts of harm to self or others. He does not show any agitation. Plan: We'll have medical follow-up regarding complaints of lower extremity rash. He is encouraged not to scratch it. Continue current psychotropic medication regimen. We'll continue to monitor for any medication side effects and monitor his ongoing response.
[2018-05-12] MEDS: QUEtiapine 100 MG TAB PO SCH ×2 (16:36→20:44)
[2018-05-12] MEDS: ATORVASTATIN 10 MG TAB PO SCH (20:44)
[2018-05-13] MEDS: levETIRAcetam 500 MG TAB PO SCH ×2 (09:11→20:22)
[2018-05-13] MEDS: PANTOPRAZOLE 40 MG TABLET PO SCH (09:11)
[2018-05-13] MEDS: VALPROIC ACID ORAL SOLN 250 MG/5 ML CUP PO SCH ×2 (09:11→20:23)
[2018-05-13] MEDS: clonazePAM 0.5 MG TAB PO SCH ×2 (09:11→20:21)
[2018-05-13] MEDS: DOCUSATE 100 MG CAP PO SCH (09:11)
[2018-05-13] MEDS: FAMOTIDINE 20 MG TAB PO SCH ×2 (09:11→20:23)
[2018-05-13] MEDS: LACOSAMIDE 50 MG TABLET PO SCH ×2 (09:11→21:07)
[2018-05-13] MEDS: ASPIRIN 81 MG PO SCH (09:11)
--- NOTE | 2018-05-13 09:11 | P.PN ---
Progress Note - Text Interval history: The patient approaches my office he comes in and sits for an interview. He reports his mood is "alright". He continues to perseverate on wanting placement on [facility] as he knows the neighborhood. He remains compliant with medication. He is not demonstrating any agitated behavior than I have been informed of. He continues to ask for a Haldol injection although it appears unnecessary. Vital signs reviewed. Progress notes from this past weekend were reviewed. Mental status exam: The patient is alert he is ambulating without ataxia. He seated calmly at the table. He looks down for most of the session and intermittently looks up. He does have a damon he is dressed in his own clothing. He does have 2 healing lesions on his scalp which he is encouraged not to pick at. He has spontaneous speech. Again he perseverates on what he wants in terms of his next placement. He is reporting no thoughts of harming himself or harming others. He endorses no hallucinations. He reports feeling safe in the hospital. He demonstrates no verbal or physical aggressiveness. Very briefly he becomes louder when speaking about his guardian. He states he will assert his right to ask for another guardian if his current guardian doesn' t place him in the correct facility. Insight and judgment chronically limited due to his intellectual disability. Overall his behavior has improved greatly during the course of this hospitalization. Plan: The patient will continue on his current psychotropic medication. We are awaiting appropriate placement as directed by his guardian in collaboration with social work. Vital signs reviewed. We will continue monitoring him for safety. He is encouraged to appropriately participate in the milieu.
[2018-05-13] MEDS: MEMANTINE 10 MG TAB PO SCH ×2 (09:12→20:22)
[2018-05-13] MEDS: APIXABAN 5 MG TAB PO SCH ×2 (09:12→21:27)
[2018-05-13] MEDS: DONEPEZIL 10 MG TAB PO SCH (09:12)
[2018-05-13] MEDS: SYMBICORT 80-4.5 MCG INHALER INHALATION SCH ×2 (09:35→21:25)
[2018-05-13] MEDS: TIOTROPIUM 18 MCG/PUFF INHALER INHALATION SCH (09:35)
[2018-05-13] MEDS: ACETAMINOPHEN TAB 325 MG TAB PO PRN ×3 (12:10→20:23)
[2018-05-13] MEDS: QUEtiapine 100 MG TAB PO SCH ×2 (16:37→20:22)
[2018-05-13] MEDS: ATORVASTATIN 10 MG TAB PO SCH (20:22)
[2018-05-14 02:28] VITALS: TEMP 97.7
[2018-05-14] MEDS: ACETAMINOPHEN TAB 325 MG TAB PO PRN ×2 (02:53→07:00)
[2018-05-14] MEDS: ASPIRIN 81 MG PO SCH (08:35)
[2018-05-14] MEDS: clonazePAM 0.5 MG TAB PO SCH (08:35)
[2018-05-14] MEDS: PANTOPRAZOLE 40 MG TABLET PO SCH (08:35)
[2018-05-14] MEDS: FAMOTIDINE 20 MG TAB PO SCH (08:35)
[2018-05-14] MEDS: levETIRAcetam 500 MG TAB PO SCH (08:35)
[2018-05-14] MEDS: MEMANTINE 10 MG TAB PO SCH (08:36)
[2018-05-14] MEDS: DONEPEZIL 10 MG TAB PO SCH (08:36)
[2018-05-14] MEDS: LACOSAMIDE 50 MG TABLET PO SCH (08:36)
[2018-05-14] MEDS: APIXABAN 5 MG TAB PO SCH (08:36)
[2018-05-14] MEDS: DOCUSATE 100 MG CAP PO SCH (08:37)
[2018-05-14] MEDS: VALPROIC ACID ORAL SOLN 250 MG/5 ML CUP PO SCH (08:37)
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
[2018-05-14 09:57] VITALS: BP 136/83; PULSE 86; RESP 16
[2018-05-14 10:55] VITALS: BMI 24.8
[2018-05-14] MEDS: SYMBICORT 80-4.5 MCG INHALER INHALATION SCH (10:58)
[2018-05-14] MEDS: TIOTROPIUM 18 MCG/PUFF INHALER INHALATION SCH (10:59)
--- NOTE | 2018-05-15 21:42 | ED ---
Medical Decision Making - Medical Decision Making 05/15/18 9:42pm I was asked to enter this patient's chart to provide his admitting physician with explanation why he was taking eliquis, and was able to inform that he has history of pulmonary embolus. - Lab Data Result diagrams: 04/18/18 12:31 04/18/18 12:31 Lab Results 04/18/18 04/18/18 04/18/18 Range/Units 12:25 12:31 12:31 WBC 7.2 (3.8-10.6) k/uL RBC 3.97 L (4.30-5.90) m/uL Hgb 11.2 L (13.0-17.5) gm/dL Hct 34.6 L (39.0-53.0) % MCV 87.3 (80.0-100.0) fL MCH 28.2 (25.0-35.0) pg MCHC 32.3 (31.0-37.0) g/dL RDW 15.3 (11.5-15.5) % Plt Count 281 (150-450) k/uL Neutrophils % 70 % Lymphocytes % 19 % Monocytes % 7 % Eosinophils % 2 % Basophils % 0 % Neutrophils # 5.0 (1.3-7.7) k/uL Lymphocytes # 1.4 (1.0-4.8) k/uL Monocytes # 0.5 (0-1.0) k/uL Eosinophils # 0.1 (0-0.7) k/uL Basophils # 0.0 (0-0.2) k/uL Hypochromasia Slight PT (9.0-12.0) sec INR (<1.2) APTT (22.0-30.0) sec Sodium (137-145) mmol/L Potassium (3.5-5.1) mmol/L Chloride (98-107) mmol/L Carbon Dioxide (22-30) mmol/L Anion Gap mmol/L BUN (9-20) mg/dL Creatinine (0.66-1.25) mg/dL Est GFR (CKD-EPI)AfAm (>60 ml/min/1.73 sqM) Est GFR (CKD-EPI)NonAf (>60 ml/min/1.73 sqM) Glucose (74-99) mg/dL Calcium (8.4-10.2) mg/dL Total Bilirubin (0.2-1.3) mg/dL AST (17-59) U/L ALT (21-72) U/L Alkaline Phosphatase (38-126) U/L Total Creatine Kinase 99 (55-170) U/L CK-MB (CK-2) 2.9 H* (0.0-2.4) ng/mL CK-MB (CK-2) Rel Index 2.9 Troponin I <0.012 (0.000-0.034) ng/mL Total Protein (6.3-8.2) g/dL Albumin (3.5-5.0) g/dL Urine Color Colorless Urine Appearance Clear (Clear) Urine pH 7.0 (5.0-8.0) Ur Specific [place] 1.006 (1.001-1.035) Urine Protein Negative (Negative) Urine Glucose (UA) Negative (Negative) Urine Ketones Negative (Negative) Urine Blood Negative (Negative) Urine Nitrite Negative (Negative) Urine Bilirubin Negative (Negative) Urine Urobilinogen <2.0 (<2.0) mg/dL Ur Leukocyte Esterase Negative (Negative) Urine Opiates Screen Not Detected (NotDetected) Ur Oxycodone Screen Not Detected (NotDetected) Urine Methadone Screen Not Detected (NotDetected) Ur Propoxyphene Screen Not Detected (NotDetected) Ur Barbiturates Screen Not Detected (NotDetected) U Tricyclic Antidepress Not Detected (NotDetected) Ur Phencyclidine Scrn Not Detected (NotDetected) Ur Amphetamines Screen Not Detected (NotDetected) U Methamphetamines Scrn Not Detected (NotDetected) U Benzodiazepines Scrn Not Detected (NotDetected) Urine Cocaine Screen Not Detected (NotDetected) U Marijuana (THC) Screen Not Detected (NotDetected) Serum Alcohol mg/dL 04/18/18 04/18/18 04/18/18 Range/Units 12:31 12:31 13:27 WBC (3.8-10.6) k/uL RBC (4.30-5.90) m/uL Hgb (13.0-17.5) gm/dL Hct (39.0-53.0) % MCV (80.0-100.0) fL MCH (25.0-35.0) pg MCHC (31.0-37.0) g/dL RDW (11.5-15.5) % Plt Count (150-450) k/uL Neutrophils % % Lymphocytes % % Monocytes % % Eosinophils % % Basophils % % Neutrophils # (1.3-7.7) k/uL Lymphocytes # (1.0-4.8) k/uL Monocytes # (0-1.0) k/uL Eosinophils # (0-0.7) k/uL Basophils # (0-0.2) k/uL Hypochromasia PT 10.7 (9.0-12.0) sec INR 1.1 (<1.2) APTT 30.6 H (22.0-30.0) sec Sodium 138 (137-145) mmol/L Potassium 5.1 (3.5-5.1) mmol/L Chloride 99 (98-107) mmol/L Carbon Dioxide 29 (22-30) mmol/L Anion Gap 10 mmol/L BUN 17 (9-20) mg/dL Creatinine 0.90 (0.66-1.25) mg/dL Est GFR (CKD-EPI)AfAm >90 (>60 ml/min/1.73 sqM) Est GFR (CKD-EPI)NonAf >90 (>60 ml/min/1.73 sqM) Glucose 81 (74-99) mg/dL Calcium 9.2 (8.4-10.2) mg/dL Total Bilirubin 0.4 (0.2-1.3) mg/dL AST 19 (17-59) U/L ALT 22 (21-72) U/L Alkaline Phosphatase 71 (38-126) U/L Total Creatine Kinase (55-170) U/L CK-MB (CK-2) (0.0-2.4) ng/mL CK-MB (CK-2) Rel Index Troponin I (0.000-0.034) ng/mL Total Protein 6.8 (6.3-8.2) g/dL Albumin 3.9 (3.5-5.0) g/dL Urine Color Urine Appearance (Clear) Urine pH (5.0-8.0) Ur Specific [place] (1.001-1.035) Urine Protein (Negative) Urine Glucose (UA) (Negative) Urine Ketones (Negative) Urine Blood (Negative) Urine Nitrite (Negative) Urine Bilirubin (Negative) Urine Urobilinogen (<2.0) mg/dL Ur Leukocyte Esterase (Negative) Urine Opiates Screen (NotDetected) Ur Oxycodone Screen (NotDetected) Urine Methadone Screen (NotDetected) Ur Propoxyphene Screen (NotDetected) Ur Barbiturates Screen (NotDetected) U Tricyclic Antidepress (NotDetected) Ur Phencyclidine Scrn (NotDetected) Ur Amphetamines Screen (NotDetected) U Methamphetamines Scrn (NotDetected) U Benzodiazepines Scrn (NotDetected) Urine Cocaine Screen (NotDetected) U Marijuana (THC) Screen (NotDetected) Serum Alcohol <10 mg/dL Disposition Clinical Impression: Change in mental status, Aggressive behavior, Violent behavior Disposition: TRANSFER TO PSYCH HOSP/UNIT Condition: Stable
== END 2018-05-14 12:45 | disposition home or self-care (01) | DRG 880 ==
LOC: EC 11:31 → 3MHU 04-20 15:15
PROVIDERS: ADMIT Psychiatry & Neurology Psychiatry; ATTEND Psychiatry & Neurology Psychiatry
DX: F99 Mental disorder, not otherwise specified (principal); G40.919 Epilepsy, unspecified, intractable, without status epilepticus; F79 Unspecified intellectual disabilities; F41.9 Anxiety disorder, unspecified; R45.4 Irritability and anger; N31.9 Neuromuscular dysfunction of bladder, unspecified; G40.909 Epilepsy, unspecified, not intractable, without status epilepticus; F03.90 Unspecified dementia, unspecified severity, without behavioral disturbance, psychotic disturbance, mood disturbance, and anxiety; R21 Rash and other nonspecific skin eruption; R41.9 Unspecified symptoms and signs involving cognitive functions and awareness; R90.82 White matter disease, unspecified; I10 Essential (primary) hypertension; K21.9 Gastro-esophageal reflux disease without esophagitis; F31.9 Bipolar disorder, unspecified; R47.9 Unspecified speech disturbances; Z79.01 Long term (current) use of anticoagulants; Z79.899 Other long term (current) drug therapy; Z79.82 Long term (current) use of aspirin; Z88.8 Allergy status to other drugs, medicaments and biological substances; Z91.83 Wandering in diseases classified elsewhere; Z86.711 Personal history of pulmonary embolism; Z87.01 Personal history of pneumonia (recurrent); R45.6 Violent behavior; R45.1 Restlessness and agitation; R45.87 Impulsiveness
CPT/HCPCS: 36415; 70450; 71046; 80053; 80164; 80306; 80320; 81003; 82550; 82553; 84450; 84460; 84484; 85025; 85610; 85730; 93005; 94640; 96372; 96374; 99285